=== PATIENT | male | born 1955 | race Caucasian/White ===

== ENCOUNTER 2019-10-29 09:56 | Emergency (ER) | payer MEDICARE ==
[~2019-10-29] VITALS: Ht 190.5 cm; Wt 108.0 kg
[~2019-10-29 09:56] MED LIST: ACET325; ALBU90OI INH; AMIO200; AMLO5 PO; AMOX500 PO; AMOX875 PO; ASPI325; ASPI81CH PO; ASPI81EC PO; ATEN25 PO; ATOR10 PO; Amiodarone HCl200 MG PO; Amlodipine Besyl5 MG PO; BUME1 PO; CARV25; CARV25 PO; CIPR250 PO; CIPR500 PO; CYCL10 PO; Cartia Xt180 MG PO; Carvedilol25 MG PO; Cleocin HCl300 MG PO; DIAZ5 PO; DIGO.125 PO; DIGO.25 PO; DIGOX125 MCG PO; DILT180 PO; ELIQUIS PO; ELIQUIS5 MG PO; ENOX120I SC; ENOX120I SQ; FENO48 PO; FOLI1 PO; FURO20 PO; GLIP10 PO; HYDACE10B PO; HYDACE5 PO; HYDR-86 PO; IBUP200; IBUP800 PO; INSDET100; LEVFLO500 PO; LEVO750 PO; LIDO700A20 TOP; LISHYD2012 PO; LISI20 PO; LISI5 PO; LORA2 PO; Lisinopril2.5 MG; MAGCHL64ER PO; METF500 PO; METH10 PO; METO50 PO; Metformin HCl1000 MG PO; NAPR220 PO; NAPR500 PO; NAPR550 PO; Norco 10-325 T1 EACH PO; Norco 5-325 Ta1 EACH PO; Norco 7.5-3251 EACH PO; OMEP40CA12 PO; OMEPRAZOLE DR 40 MG; OXYACE5T PO; OXYCODONE PO; POTA10T PO; POTCHL10ER PO; PRAV20 PO; PRED20 PO; PROM25 PO; Percocet 5-3251 EACH PO; Potassium Chlo10 ME1 PO; Prednisone20 MG PO; RXHYDACE PO; RXLORA1 PO; Robaxin500 MG PO; SOTO80 PO; TEMA15 PO; THIA100 PO; TIOT18 INH; TRAM50 PO; VARE1 PO; Valium5 MG PO; WARF5 PO; WARF7.5 PO; Zithromax250 MG PO
[2019-10-29] MEDS ORDERED: Norco 10-325 T1 EACH PO (10:44)
[2019-10-29] MEDS ORDERED: Prednisone20 MG PO (10:44)
[2019-10-29] MEDS ORDERED: CYCL10 PO (10:44)
== END 2019-10-29 11:03 | disposition home or self-care (01) ==
LOC: ER 09:56
DX: G89.29 Other chronic pain (principal); M54.5 Low back pain; Z88.1 Allergy status to other antibiotic agents; Z88.8 Allergy status to other drugs, medicaments and biological substances; Z79.899 Other long term (current) drug therapy; J44.9 Chronic obstructive pulmonary disease, unspecified; I48.91 Unspecified atrial fibrillation; E11.9 Type 2 diabetes mellitus without complications; I10 Essential (primary) hypertension; G47.33 Obstructive sleep apnea (adult) (pediatric); Z87.891 Personal history of nicotine dependence
CPT/HCPCS: 96372; 99283-25; J2550; J3010

== ENCOUNTER 2019-12-24 10:59 | Inpatient (IN) | payer MEDICARE ==
[~2019-12-24] VITALS: Ht 190.5 cm; Wt 108.9 kg
[~2019-12-24 10:59] MED LIST changes: -ATOR10 PO; -ELIQUIS5 MG PO; -FENO48 PO; -INSDET100
[2019-12-24 11:52] LABS: BASOPHILS ABSOLUTE AUTO 0.03 K/mm3 (0.00-0.23); BASOPHILS PERCENT AUTO 0 % (0-2); EOSINOPHILS PERCENT AUTO 1 % (0-6); Hematocrit 43.4 % (37.0-53.0); Hemoglobin 13.9 g/dL (13.5-17.5); IMMATURE GRAN ABSOLUTE AUTO 0.04 K/mm3 (0.00-0.10); IMMATURE GRAN PERCENT AUTO 1 % (0-1); LYMPHOCYTES ABSOLUTE AUTO 1.03 K/mm3 (0.84-5.20); LYMPHOCYTES PERCENT AUTO 12 % (21-46); MONOCYTES ABSOLUTE AUTO 0.58 K/mm3 (0.16-1.47); MONOCYTES PERCENT AUTO 7 % (4-13); Mean Corpuscular HGB 28.5 pg (26.0-34.0); Mean Corpuscular Volume 89 fL (80-100); Mean Platelet Volume 8.7 fL (9.1-12.4); NEUTROPHILS ABSOLUTE AUTO 7.08 K/mm3 (1.96-9.15); NEUTROPHILS PERCENT AUTO 80 % (41-73); Platelet Count 299 K/mm3 (150-400); RDW Coefficient Variation 13.4 % (11.7-14.2); RDW Standard Deviation 43.8 fL (35.1-46.3); Red Blood Cell Count 4.88 M/mm3 (4.30-5.90); White Blood Cell Count 8.86 K/mm3 (4.00-11.30)
[2019-12-24 12:05] LABS: Albumin, Blood 3.5 g/dL (3.4-5.0); Albumin/Globulin Ratio 0.7 (0.8-1.8); Bilirubin, Total 0.6 mg/dL (0.1-1.0); Bun/Creatinine Ratio 22.9 (12.0-20.0); Calcium, Blood 9.5 mg/dL (8.5-10.1); Creatinine, Blood 1.31 mg/dL (0.60-1.20); Potassium, Blood 4.3 mmol/L (3.5-5.5); Total Protein, Blood 8.5 g/dL (6.4-8.2)
[2019-12-24] MEDS ORDERED: Bumetanide1 MG PO ×2 (12:32→16:36)
[2019-12-24] MEDS ORDERED: OXYC5 PO (12:38)
[2019-12-24] MEDS ORDERED: ATOR10 PO (12:39)
[2019-12-24] MEDS ORDERED: FENO48 PO (12:40)
[2019-12-24] MEDS ORDERED: LOSARTAN POTASS25 M2 PO (12:40)
[2019-12-24] MEDS ORDERED: NOVOLIN N100 UNIT/1 SC (12:41)
[2019-12-24] MEDS ORDERED: METO100 PO (12:42)
[2019-12-24] MEDS ORDERED: INSDET100 SC (12:42)
[2019-12-24] MEDS ORDERED: CLON.1 PO (12:43)
[2019-12-24] MEDS ORDERED: ELIQUIS5 MG PO (12:55)
--- NOTE | 2019-12-24 16:15 | NUR ---
PT ARRIVED TO ROOM 231 FROM ER DEPT PT IS BEING ADMITTED FOR OSTEO OF L TOE PT TO HAVE AMP PT TAKING BLOOD THINNER OK TO EAT BS 88 FOOD GIVEN
[2019-12-24] MEDS ORDERED: Fish Oil Conc1000 MG PO (16:42)
[2019-12-24] MEDS ORDERED: CENTRUM SILVER1 EAC2 PO (16:42)
[2019-12-24] MEDS ORDERED: D3 DOTS50 MCG PO (16:43)
[2019-12-24] MEDS ORDERED: Super B-50 Com1 EACH PO (16:43)
--- NOTE | 2019-12-24 18:10 | NUR ---
pt had dinner pt req the light off
--- NOTE | 2019-12-24 18:19 | NUR ---
MESSAGE LEFT WITH DR GROSS FOR CONSULT
[2019-12-25 05:16] LABS: BASOPHILS ABSOLUTE AUTO 0.03 K/mm3 (0.00-0.23); BASOPHILS PERCENT AUTO 1 % (0-2); EOSINOPHILS ABSOLUTE AUTO 0.17 K/mm3 (0.00-0.68); EOSINOPHILS PERCENT AUTO 3 % (0-6); Hematocrit 39.4 % (37.0-53.0); Hemoglobin 12.7 g/dL (13.5-17.5); IMMATURE GRAN ABSOLUTE AUTO 0.04 K/mm3 (0.00-0.10); IMMATURE GRAN PERCENT AUTO 1 % (0-1); LYMPHOCYTES ABSOLUTE AUTO 1.36 K/mm3 (0.84-5.20); LYMPHOCYTES PERCENT AUTO 23 % (21-46); MONOCYTES ABSOLUTE AUTO 0.63 K/mm3 (0.16-1.47); MONOCYTES PERCENT AUTO 11 % (4-13); Mean Corpuscular HGB 28.3 pg (26.0-34.0); Mean Corpuscular HGB Conc 32.2 g/dL (31.5-36.5); Mean Corpuscular Volume 88 fL (80-100); Mean Platelet Volume 8.9 fL (9.1-12.4); NEUTROPHILS ABSOLUTE AUTO 3.67 K/mm3 (1.96-9.15); NEUTROPHILS PERCENT AUTO 62 % (41-73); Platelet Count 245 K/mm3 (150-400); RDW Coefficient Variation 13.7 % (11.7-14.2); RDW Standard Deviation 43.9 fL (35.1-46.3); Red Blood Cell Count 4.48 M/mm3 (4.30-5.90)
[2019-12-25 05:38] LABS: Alanine Aminotransfer (ALT/SGP 22 U/L (12-78); Albumin, Blood 2.9 g/dL (3.4-5.0); Albumin/Globulin Ratio 0.7 (0.8-1.8); Alk Phos 82 U/L (50-136); Anion Gap 7 mmol/L (6-16); Aspartate Aminotrans (AST/SGOT 22 U/L (12-37); Bilirubin, Total 0.5 mg/dL (0.1-1.0); Blood Urea Nitrogen 30 mg/dL (8-24); Bun/Creatinine Ratio 23.8 (12.0-20.0); CO2, Blood 25 mmol/L (21-32); Calcium, Blood 8.8 mg/dL (8.5-10.1); Chloride, Blood 106 mmol/L (98-108); Creatinine, Blood 1.26 mg/dL (0.60-1.20); Globulin, Blood 4.4 g/dL (2.2-4.0); Glomerular Filtration Rate >60 (60-); Glucose, Blood 106 mg/dL (70-99); Potassium, Blood 4.1 mmol/L (3.5-5.5); Sodium, Blood 138 mmol/L (136-145); Total Protein, Blood 7.3 g/dL (6.4-8.2)
--- NOTE | 2019-12-25 07:59 | NUR ---
SUMMARY PT C/O PAIN MEDS INEFFECTIVE LAST NIGHT. VERB HE HAS RECEIVED OXYCONTIN FOR PAIN IN PAST WHICH WAS EFFECTIVE AND REQUESTING THIS. I SPOKE WITH DR BLAKE WHO GAVE PT ADDITIONAL DOSE OF NORCO AND VERB WOULD NOT CHANGE ORDERS OTHERWISE TONIGHT.ADDITIONAL DOSE WAS GIVEN, AND PT APPEARED SLEEPING AND SNORING AFTER, BUT STILL VERB LITTLE SLEEP.PT VERB NERVOUS ABOUT TODAYS OUTCOMESUPPORT GIVEN.
--- NOTE | 2019-12-25 12:14 | NUR ---
PT TO SURGERY
--- NOTE | 2019-12-25 13:35 | NUR ---
12/25/19 1335 Daljit Du ON SCHEDULED ANTIBITICS
--- NOTE | 2019-12-25 14:34 | NUR ---
PT BACK TO ROOM FROM PACU VSS. DENIES PAIN TO LLE AT THIS TIME. DRESSING TO LLE CDI. ADVISED PT TO NOT GET UP W/O ASSISTANCE. VERBALIZED UNDERSTANDING. PROVIDED WATER, JELLO AND CRACKERS. PT VERBALIZED THIRSTY AND HUNGRY. AT BEDSIDE.
--- NOTE | 2019-12-25 18:15 | NUR ---
SUMMARY S/P L GREAT TOE AMPUTATION THIS SHIFT. VSS. MEDICATED AT APPROXIMATELY 1805 FOR 8/10 LLE PAIN PER ORDERS. THIS WAS THE FIRST TIME PT REQUIRED PAIN MEDS SINCE RETURNING TO FLOOR FROM PACU. DRESSING TO LLE CDI. CALL LIGHT IN REACH.
[2019-12-26 05:19] LABS: BASOPHILS ABSOLUTE AUTO 0.03 K/mm3 (0.00-0.23); BASOPHILS PERCENT AUTO 0 % (0-2); EOSINOPHILS ABSOLUTE AUTO 0.15 K/mm3 (0.00-0.68); EOSINOPHILS PERCENT AUTO 2 % (0-6); Hematocrit 39.9 % (37.0-53.0); Hemoglobin 12.4 g/dL (13.5-17.5); IMMATURE GRAN ABSOLUTE AUTO 0.03 K/mm3 (0.00-0.10); IMMATURE GRAN PERCENT AUTO 0 % (0-1); LYMPHOCYTES ABSOLUTE AUTO 1.04 K/mm3 (0.84-5.20); LYMPHOCYTES PERCENT AUTO 13 % (21-46); MONOCYTES ABSOLUTE AUTO 0.68 K/mm3 (0.16-1.47); MONOCYTES PERCENT AUTO 8 % (4-13); Mean Corpuscular HGB 27.6 pg (26.0-34.0); Mean Corpuscular HGB Conc 31.1 g/dL (31.5-36.5); Mean Corpuscular Volume 89 fL (80-100); Mean Platelet Volume 8.5 fL (9.1-12.4); NEUTROPHILS PERCENT AUTO 77 % (41-73); Platelet Count 233 K/mm3 (150-400); RDW Coefficient Variation 13.7 % (11.7-14.2); RDW Standard Deviation 44.3 fL (35.1-46.3); White Blood Cell Count 8.33 K/mm3 (4.00-11.30)
[2019-12-26 05:44] LABS: Albumin, Blood 2.9 g/dL (3.4-5.0); Albumin/Globulin Ratio 0.7 (0.8-1.8); Bilirubin, Total 0.5 mg/dL (0.1-1.0); Bun/Creatinine Ratio 19.1 (12.0-20.0); C-REACTIVE PROTEIN, EXT RANGE 0.998 mg/dL (0.000-0.300); Calcium, Blood 9.1 mg/dL (8.5-10.1); Creatinine, Blood 1.36 mg/dL (0.60-1.20); Globulin, Blood 4.1 g/dL (2.2-4.0); Potassium, Blood 4.2 mmol/L (3.5-5.5)
--- NOTE | 2019-12-26 07:59 | NUR ---
SUMMARY PT INTERMITTENTLY APPEARED TO SLEEP LAST NIGHT, BUT REPORTS NOT SLEEPING. PT INITIALLY VERB HE HAS DIFF WITH TROUBLE SLEEPING.I ASKED PT IF HE WOULD LIKE ME TO CALL FOR REQUEST OF SLEEP MED AND PT DECLINED. STATED THEY DO NOT WORK FOR HIM. INTIIALLY PT REPORTED ONLY PAIN TO L FOOT, BUT NIGHT PROGRESSED, PT C/O "BURNING" PAIN BILAT FEET.VERB SAME TYPE OF PAIN HE HAS AT HOME. WHEN ASKED WHAT PT DOES FOR THIS PAIN AT HOME,PT STATED USES CBD OIL AND "I DEAL WITH IT"PT ASKING TO BRING HIS CBD OIL IN THIS AM SO WE CAN ASK DR IF ALLOWABLE TO USE.PT STATES FORGOT TO BRING IT IN FRIDAY AND CAN NOT BRING IN UNTIL TODAY. I CALLED DR BLAKE THIS AM WITH REPORT OF PT C/O AND PTS BRINGING CBD. ADVISED HE DID NOT WISH TO CHANGE ORDERS, BUT WANTS PRIMARY TEAM TODAY TO BE IN CONTROL OF PAIN MED ORDERS.I ADVISED ONCOMING NURSE AND PT. I ALSO ADVISED PT IF HE COULD THINK OF ANYTHING ELSE HE HAS DONE OR USED IN PAST FOR PAIN CONTROL TO LET NURSES KNOW AND WE CAN SPEAK WITH DAYTIME DOCTORS. PT AGREES. ALSO OFFERED ICE FOR COMFORT. PT DECLINES. ENCOURAGED NOT TO BEAR WEIGHT LLE WHICH PT CONTINUES TO USE HEEL FOR WALKING. DSNGS REMAIN DRY. WIGGLES TOES WITHOUT DIFF. REFILL WNL.
[2019-12-26] MEDS ORDERED: ACET325 PO (11:28)
[2019-12-26] MEDS ORDERED: DOCU100 PO (11:30)
[2019-12-26] MEDS ORDERED: BISA10S PR (11:30)
[2019-12-26] MEDS ORDERED: Flonase 0.05% N16 GM (11:31)
[2019-12-26] MEDS ORDERED: Norco 5-325 Ta1 EACH PO (11:32)
[2019-12-26] MEDS ORDERED: ONDA4ODT MM (11:33)
[2019-12-26] MEDS ORDERED: LEVO750 PO (11:33)
[2019-12-26] MEDS ORDERED: SENN187 PO (11:34)
[2019-12-26] MEDS ORDERED: DEEP SEA44 ML (11:35)
[2019-12-26] MEDS ORDERED: Florastor250 MG PO (11:35)
--- NOTE | 2019-12-26 13:24 | NUR ---
DISCHARGED FAXED PRESCRIPTIONS TO [facility] PER PT REQUEST. REVIEWED DC PAPERWORK W/PT; VERBALIZED UNDERSTANDING. DC'D IVS, CATHETERS INTACT. PT REFUSED WC, AMBULATED OUT W/POSSESSIONS AND DC PAPERWORK, ACCOMPANIED BY SPOUSE.
== END 2019-12-26 12:30 | disposition home or self-care (01) | DRG 617 ==
LOC: ER 10:59 → SURS 13:28
PROVIDERS: Emergency Medicine; Family Medicine; Podiatrist; ADMIT Internal Medicine
PROC: 0Y6Q0Z0 Detachment at Left 1st Toe, Complete, Open Approach (ICD-10-PCS; principal; 2019-12-25 11:15)
DX: E11.69 Type 2 diabetes mellitus with other specified complication (principal); M86.172 Other acute osteomyelitis, left ankle and foot; I48.20 Chronic atrial fibrillation, unspecified; E11.21 Type 2 diabetes mellitus with diabetic nephropathy; I12.9 Hypertensive chronic kidney disease with stage 1 through stage 4 chronic kidney disease, or unspecified chronic kidney disease; E11.22 Type 2 diabetes mellitus with diabetic chronic kidney disease; N18.3 Chronic kidney disease, stage 3 (moderate); Z79.4 Long term (current) use of insulin; E11.42 Type 2 diabetes mellitus with diabetic polyneuropathy; J44.9 Chronic obstructive pulmonary disease, unspecified; Z79.01 Long term (current) use of anticoagulants; Z86.718 Personal history of other venous thrombosis and embolism; G47.33 Obstructive sleep apnea (adult) (pediatric); K21.9 Gastro-esophageal reflux disease without esophagitis; E78.5 Hyperlipidemia, unspecified; G89.29 Other chronic pain; L03.032 Cellulitis of left toe; Z87.891 Personal history of nicotine dependence
CPT/HCPCS: 36415; 73660; 80053; 82947; 85025; 85651; 86140; 93005; 93010; 96365; 96367; 96372-59; 96375; 99285-25; A9270-GY; J1170; J1644; J1956; J2250; J2370; J2405; J2543; J2704; J2765; J3010; J7120

== ENCOUNTER 2020-03-24 15:59 | Emergency (ER) | payer MEDICARE ==
[~2020-03-24] VITALS: Ht 190.5 cm; Wt 112.5 kg
[~2020-03-24 15:59] MED LIST changes: +ACET325 PO; +ATOR10 PO; +Augmentin 875-1 EACH PO; +BISA10S PR; +Bumetanide1 MG PO; +CENTRUM SILVER1 EAC2 PO; +CLON.1 PO; +D3 DOTS50 MCG PO; +DEEP SEA44 ML; +DOCU100 PO; +ELIQUIS5 MG PO; +FENO48 PO; +Fish Oil Conc1000 MG PO; +Flonase 0.05% N16 GM; +Florastor250 MG PO; +HYDR1TAB94 PO; +INSDET100 SC; +LOSARTAN POTASS25 M2 PO; +METO100 PO; +NOVOLIN N100 UNIT/1 SC; +ONDA4ODT MM; +OXYC5 PO; +SENN187 PO; +Super B-50 Com1 EACH PO
[2020-03-24] MEDS ORDERED: HYDR1TAB94 PO (16:47)
[2020-03-24] MEDS ORDERED: Robaxin-750750 MG PO (16:47)
== END 2020-03-24 16:57 | disposition home or self-care (01) ==
LOC: ER 15:59
DX: G89.29 Other chronic pain (principal); M54.5 Low back pain; I10 Essential (primary) hypertension; E11.42 Type 2 diabetes mellitus with diabetic polyneuropathy; I48.91 Unspecified atrial fibrillation; K21.9 Gastro-esophageal reflux disease without esophagitis; E78.5 Hyperlipidemia, unspecified; Z86.718 Personal history of other venous thrombosis and embolism; G47.33 Obstructive sleep apnea (adult) (pediatric); Z87.891 Personal history of nicotine dependence; Z88.1 Allergy status to other antibiotic agents; Z88.8 Allergy status to other drugs, medicaments and biological substances; Z88.6 Allergy status to analgesic agent; Z79.4 Long term (current) use of insulin; Z79.899 Other long term (current) drug therapy
CPT/HCPCS: 96372; 99283-25; A9270-GY; J1885

== ENCOUNTER 2020-08-09 11:13 | Inpatient (IN) | payer MEDICARE ==
[~2020-08-09] VITALS: Ht 188 cm; Wt 118.9 kg
[~2020-08-09 11:13] MED LIST changes: +Robaxin-750750 MG PO
[2020-08-09 12:34] LABS: BASOPHILS ABSOLUTE AUTO 0.05 K/mm3 (0.00-0.23); BASOPHILS PERCENT AUTO 1 % (0-2); EOSINOPHILS ABSOLUTE AUTO 0.18 K/mm3 (0.00-0.68); EOSINOPHILS PERCENT AUTO 2 % (0-6); Hematocrit 37.3 % (37.0-53.0); Hemoglobin 11.7 g/dL (13.5-17.5); IMMATURE GRAN ABSOLUTE AUTO 0.06 K/mm3 (0.00-0.10); IMMATURE GRAN PERCENT AUTO 1 % (0-1); LYMPHOCYTES ABSOLUTE AUTO 0.88 K/mm3 (0.84-5.20); LYMPHOCYTES PERCENT AUTO 8 % (21-46); MONOCYTES PERCENT AUTO 9 % (4-13); Mean Corpuscular HGB 28.3 pg (26.0-34.0); Mean Corpuscular HGB Conc 31.4 g/dL (31.5-36.5); Mean Corpuscular Volume 90 fL (80-100); Mean Platelet Volume 9.5 fL (9.1-12.4); NEUTROPHILS ABSOLUTE AUTO 8.42 K/mm3 (1.96-9.15); NEUTROPHILS PERCENT AUTO 80 % (41-73); Platelet Count 218 K/mm3 (150-400); RDW Coefficient Variation 13.5 % (11.7-14.2); RDW Standard Deviation 44.7 fL (35.1-46.3); Red Blood Cell Count 4.14 M/mm3 (4.30-5.90); White Blood Cell Count 10.59 K/mm3 (4.00-11.30)
[2020-08-09 12:47] LABS: Albumin, Blood 2.8 g/dL (3.4-5.0); Albumin/Globulin Ratio 0.6 (0.8-1.8); Bilirubin, Total 0.4 mg/dL (0.1-1.0); Bun/Creatinine Ratio 18.5 (12.0-20.0); Calcium, Blood 9.1 mg/dL (8.5-10.1); Creatinine, Blood 1.3 mg/dL (0.60-1.20); Globulin, Blood 4.4 g/dL (2.2-4.0); Potassium, Blood 4.8 mmol/L (3.5-5.5); Total Protein, Blood 7.2 g/dL (6.4-8.2)
[2020-08-09] MEDS ORDERED: WARF7.5 PO (13:49)
[2020-08-09] MEDS ORDERED: AMOCLA875 PO (13:49)
[2020-08-09 14:37] LABS: International Normalized Ratio 2.49; Prothrombin Time Results 25.3 Sec (9.7-11.5)
--- NOTE | 2020-08-09 19:37 | NUR ---
ADMISSION: REPORT RECEIVED FROM ED RN. PT TO ROOM AT ABOUT 1630. UPON ASSESSMENT PT IS IN NO VISABLE DISTRESS, A/0, VSS. REPORTS L FOOT PAINFUL. CSM IS INTACT. L FOOT SWOLLEN WITH WOUND AT BOTTOM OF FOOT. PICTURES TAKEN AND WOUND RE-DRESSED. PT MEDICATED FOR PAIN. WILL CTM
[2020-08-10 04:45] LABS: Hematocrit 36.6 % (37.0-53.0); Hemoglobin 11.5 g/dL (13.5-17.5); Mean Corpuscular HGB Conc 31.4 g/dL (31.5-36.5); Mean Corpuscular Volume 89 fL (80-100); Mean Platelet Volume 9.5 fL (9.1-12.4); Platelet Count 197 K/mm3 (150-400); RDW Coefficient Variation 13.8 % (11.7-14.2); RDW Standard Deviation 45.1 fL (35.1-46.3); White Blood Cell Count 9.45 K/mm3 (4.00-11.30)
[2020-08-10 05:00] LABS: International Normalized Ratio 1.66; Prothrombin Time Results 17.3 Sec (9.7-11.5)
[2020-08-10 05:08] LABS: Bun/Creatinine Ratio 16.5 (12.0-20.0); Creatinine, Blood 1.39 mg/dL (0.60-1.20); Potassium, Blood 4.3 mmol/L (3.5-5.5)
--- NOTE | 2020-08-10 07:10 | NUR ---
SUMMARY PT NOTED ON SCHEDULE FOR THIS AM. NOTIFIED PT.SEE LABS. CREAT AND GFR ABN ON ADMIT.CONT SAME THIS AM.
--- NOTE | 2020-08-10 13:26 | NUR ---
Patient up to Ambulate independently. Gait steady. History, Chart, Medications and Allergies reviewed before start of procedure.Lungs clear T/O to Auscultation. Patient confirms NPO status and agrees with scheduled surgery. ALL BELONINGS LEFT IN ROOM.
--- NOTE | 2020-08-10 16:31 | NUR ---
POST OP: REPORT RECEIVED FROM EVER INSIDE SALES LEAD. PT TO UNIT AT ABOUT 1545. UPON ASSESSMENT, VSS, PT A/O. DENIES PAIN. CMS INTACT TO L FOOT. PEDAL PULSE PALPABLE. DENIES ANY NEW N/V. PT ABLE TO TOLERATE PO INTAKE. WILL CTM
--- NOTE | 2020-08-10 18:37 | NUR ---
SUMMARY: PT IS POD0 L TOE AMPUTATIONS. DOING WELL POST OP. SURGICAL SITE IS WRAPED IN GAUZE, CDI. ENCOURAGING ELEVATING. PT TOLERATING PO INTAKE, DENIES N/V. VSS, A/0. PT ABLE TO AMBULATE, WBAT. ABLE TO VOID POST OP. REPORTS PAIN IS WELL MANAGED PER EMAR. NO ACUTE SAFETY CONCERNS, PT USING CALL LIGHT. WILL PASS REPORT TO ISAMAR FERRO.
--- NOTE | 2020-08-11 07:41 | NUR ---
SUMMARY PT AMBULATORY.VOIDIN.TOLERATING PO. VERB SUBLIMAZE WITH ADEQUATE PAIN CONTROL. HAS SURGICAL WALKING SHOE FOR L FOOT.
--- NOTE | 2020-08-11 17:53 | NUR ---
SUMMARY NO ACUTE CHANGES T/O SHIFT. PT INDEPENDENT IN ROOM. REQUIRING PO PAIN MEDS AND IV FOR BREAKTHROUGH. PLAN TO DC TOMORROW. CALL LIGHT IN REACH.
[2020-08-12] MEDS ORDERED: ROXICODONE5 MG PO (08:34)
--- NOTE | 2020-08-12 11:36 | NUR ---
DISCHARGE: PT REPORTS UNDERSTANDING OF DISCHARGE INSTRUCTIONS, TO BE SENT WITH SCRIPT, PAPERWORK AND BELONGINGS. PT EATING, DRINKING, VOIDING, REPORTS BM YESTERDAY. PT DENIES QUESTIONS REGARDING HOME MEDICATIONS. REPORTS HAVING MEDICATIONS AT HOME INCLUDING ABX. REPORTS WILL CONTACT DR OFFICE ON FRIDAY REGARDING F/U APPT'S. IV OUT EARLIER WNL. PT AWAITING FAMILY TO PICK PT UP.
--- NOTE | 2020-08-12 12:12 | NUR ---
PT REPORTS FAMILY HERE, REPORTS WANTING TO WALK OUT OF HOSPITAL. PT REPORTS FAMILY HAVING BELONGINGS INCLUDING SCRIPTS.
== END 2020-08-12 12:12 | disposition home or self-care (01) | DRG 617 ==
LOC: ER 11:13 → MEDS 16:03 → SURS 16:03
PROVIDERS: Emergency Medicine; Physician Assistant; Podiatrist; ADMIT Internal Medicine
PROC: 0Y6Y0Z0 Detachment at Left 5th Toe, Complete, Open Approach (ICD-10-PCS; 2020-08-10)
PROC: 0Y6W0Z0 Detachment at Left 4th Toe, Complete, Open Approach (ICD-10-PCS; 2020-08-10)
PROC: 0Y6U0Z0 Detachment at Left 3rd Toe, Complete, Open Approach (ICD-10-PCS; 2020-08-10)
PROC: 0QTR0ZZ Resection of Left Toe Phalanx, Open Approach (ICD-10-PCS; 2020-08-10)
PROC: 0QTR0ZZ Resection of Left Toe Phalanx, Open Approach (ICD-10-PCS; 2020-08-10)
PROC: 0Y6S0Z0 Detachment at Left 2nd Toe, Complete, Open Approach (ICD-10-PCS; principal; 2020-08-10 13:30)
DX: E11.69 Type 2 diabetes mellitus with other specified complication (principal); M86.172 Other acute osteomyelitis, left ankle and foot; I48.20 Chronic atrial fibrillation, unspecified; Z79.01 Long term (current) use of anticoagulants; G47.33 Obstructive sleep apnea (adult) (pediatric); E11.42 Type 2 diabetes mellitus with diabetic polyneuropathy; E78.5 Hyperlipidemia, unspecified; E11.21 Type 2 diabetes mellitus with diabetic nephropathy; I73.9 Peripheral vascular disease, unspecified; Z87.891 Personal history of nicotine dependence; Z79.4 Long term (current) use of insulin; K21.9 Gastro-esophageal reflux disease without esophagitis; Z91.14 Patient's other noncompliance with medication regimen; Z91.19 Patient's noncompliance with other medical treatment and regimen; I12.9 Hypertensive chronic kidney disease with stage 1 through stage 4 chronic kidney disease, or unspecified chronic kidney disease; E11.22 Type 2 diabetes mellitus with diabetic chronic kidney disease; N18.30 Chronic kidney disease, stage 3 unspecified; J44.9 Chronic obstructive pulmonary disease, unspecified; Z86.718 Personal history of other venous thrombosis and embolism
CPT/HCPCS: 36415; 80048; 80053; 82947; 85025; 85027; 85610; 87071; 87075; 87077; 87186; 87205; 93005; 93010; 93922; 99284; A9270-GY; J1100; J1815; J2250; J2370; J2405; J2704; J3010; J7120; U0003

== ENCOUNTER 2020-09-11 11:54 | Emergency (ER) | payer MEDICARE ==
[~2020-09-11] VITALS: Ht 188 cm; Wt 113.4 kg
[~2020-09-11 11:54] MED LIST changes: +AMOCLA875 PO; +ROXICODONE5 MG PO
[2020-09-11 12:38] LABS: BASOPHILS ABSOLUTE AUTO 0.03 K/mm3 (0.00-0.23); BASOPHILS PERCENT AUTO 0 % (0-2); EOSINOPHILS ABSOLUTE AUTO 0.13 K/mm3 (0.00-0.68); EOSINOPHILS PERCENT AUTO 2 % (0-6); Hematocrit 45.9 % (37.0-53.0); Hemoglobin 14.1 g/dL (13.5-17.5); IMMATURE GRAN ABSOLUTE AUTO 0.04 K/mm3 (0.00-0.10); IMMATURE GRAN PERCENT AUTO 1 % (0-1); LYMPHOCYTES ABSOLUTE AUTO 0.87 K/mm3 (0.84-5.20); LYMPHOCYTES PERCENT AUTO 11 % (21-46); MONOCYTES ABSOLUTE AUTO 0.49 K/mm3 (0.16-1.47); MONOCYTES PERCENT AUTO 6 % (4-13); Mean Corpuscular HGB 27.6 pg (26.0-34.0); Mean Corpuscular HGB Conc 30.7 g/dL (31.5-36.5); Mean Corpuscular Volume 90 fL (80-100); Mean Platelet Volume 9.7 fL (9.1-12.4); NEUTROPHILS ABSOLUTE AUTO 6.67 K/mm3 (1.96-9.15); NEUTROPHILS PERCENT AUTO 81 % (41-73); Platelet Count 165 K/mm3 (150-400); RDW Coefficient Variation 14.7 % (11.7-14.2); RDW Standard Deviation 48.4 fL (35.1-46.3); Red Blood Cell Count 5.11 M/mm3 (4.30-5.90); White Blood Cell Count 8.23 K/mm3 (4.00-11.30)
[2020-09-11 12:57] LABS: Alanine Aminotransfer (ALT/SGP 32 U/L (12-78); Albumin, Blood 3.5 g/dL (3.4-5.0); Albumin/Globulin Ratio 0.8 (0.8-1.8); Alk Phos 97 U/L (50-136); Anion Gap 4 mmol/L (6-16); Aspartate Aminotrans (AST/SGOT 23 U/L (12-37); Bilirubin, Total 0.6 mg/dL (0.1-1.0); Blood Urea Nitrogen 29 mg/dL (8-24); Bun/Creatinine Ratio 24.4 (12.0-20.0); CO2, Blood 29 mmol/L (21-32); Chloride, Blood 108 mmol/L (98-108); Creatinine, Blood 1.19 mg/dL (0.60-1.20); Globulin, Blood 4.2 g/dL (2.2-4.0); Glomerular Filtration Rate >60 (60-); Glucose, Blood 90 mg/dL (70-99); Potassium, Blood 4.6 mmol/L (3.5-5.5); Sodium, Blood 141 mmol/L (136-145); Total Protein, Blood 7.7 g/dL (6.4-8.2); Troponin I <0.015 ng/mL (0.000-0.040)
[2020-09-11] MEDS ORDERED: CLON.1 (13:27)
== END 2020-09-11 15:41 | disposition home or self-care (01) ==
LOC: ER 11:54
PROVIDERS: Emergency Medicine
DX: R06.02 Shortness of breath (principal); R07.89 Other chest pain; E11.42 Type 2 diabetes mellitus with diabetic polyneuropathy; I48.91 Unspecified atrial fibrillation; K21.9 Gastro-esophageal reflux disease without esophagitis; E78.5 Hyperlipidemia, unspecified; Z88.8 Allergy status to other drugs, medicaments and biological substances; Z88.6 Allergy status to analgesic agent; Z88.1 Allergy status to other antibiotic agents; Z79.01 Long term (current) use of anticoagulants; Z79.899 Other long term (current) drug therapy; Z86.718 Personal history of other venous thrombosis and embolism; Z87.891 Personal history of nicotine dependence
CPT/HCPCS: 36415; 71045; 71260; 80053; 83880; 84484; 85025; 93005; 93010; 99285-25; Q9967

== ENCOUNTER 2021-01-09 14:41 | Emergency (ER) | payer MEDICARE, SELFPAY ==
[~2021-01-09] VITALS: Ht 190.5 cm; Wt 113.4 kg
[~2021-01-09 14:41] MED LIST changes: -D3 DOTS50 MCG PO; -Fish Oil Conc1000 MG PO; +OMEGA-3 FISH O1 EAC6 PO; -Super B-50 Com1 EACH PO; +VITAMIN D31000 UNI1 PO; +Vitamin B Comple1 EA PO
[2021-01-09] MEDS ORDERED: Cyclobenzaprine5 MG PO (15:09)
[2021-01-09] MEDS ORDERED: Norco 5-325 Ta1 EACH PO (15:09)
== END 2021-01-09 15:18 | disposition home or self-care (01) ==
LOC: ER 14:41
DX: M54.41 Lumbago with sciatica, right side (principal); I10 Essential (primary) hypertension; I48.91 Unspecified atrial fibrillation; E11.42 Type 2 diabetes mellitus with diabetic polyneuropathy; K21.9 Gastro-esophageal reflux disease without esophagitis; Z79.899 Other long term (current) drug therapy; Z79.01 Long term (current) use of anticoagulants; Z79.4 Long term (current) use of insulin; Z88.6 Allergy status to analgesic agent; Z88.1 Allergy status to other antibiotic agents; Z88.8 Allergy status to other drugs, medicaments and biological substances; Z87.891 Personal history of nicotine dependence
CPT/HCPCS: 99283

== ENCOUNTER 2021-01-29 15:10 | Inpatient (IN) | payer MEDICARE, SELFPAY ==
[~2021-01-29] VITALS: Ht 188 cm; Wt 112.5 kg
[~2021-01-29 15:10] MED LIST changes: +Cyclobenzaprine5 MG PO
[2021-01-29 16:01] LABS: BASOPHILS ABSOLUTE AUTO 0.03 K/mm3 (0.00-0.23); BASOPHILS PERCENT AUTO 0 % (0-2); EOSINOPHILS ABSOLUTE AUTO 0.01 K/mm3 (0.00-0.68); EOSINOPHILS PERCENT AUTO 0 % (0-6); Hematocrit 42.8 % (37.0-53.0); Hemoglobin 14.1 g/dL (13.5-17.5); IMMATURE GRAN ABSOLUTE AUTO 0.04 K/mm3 (0.00-0.10); IMMATURE GRAN PERCENT AUTO 0 % (0-1); LYMPHOCYTES ABSOLUTE AUTO 1.14 K/mm3 (0.84-5.20); LYMPHOCYTES PERCENT AUTO 10 % (21-46); MONOCYTES ABSOLUTE AUTO 1.05 K/mm3 (0.16-1.47); MONOCYTES PERCENT AUTO 9 % (4-13); Mean Corpuscular HGB 28.9 pg (26.0-34.0); Mean Corpuscular HGB Conc 32.9 g/dL (31.5-36.5); Mean Corpuscular Volume 88 fL (80-100); Mean Platelet Volume 9.2 fL (9.1-12.4); NEUTROPHILS ABSOLUTE AUTO 9.24 K/mm3 (1.96-9.15); NEUTROPHILS PERCENT AUTO 80 % (41-73); Platelet Count 200 K/mm3 (150-400); RDW Standard Deviation 45.1 fL (35.1-46.3); Red Blood Cell Count 4.88 M/mm3 (4.30-5.90); White Blood Cell Count 11.51 K/mm3 (4.00-11.30)
[2021-01-29 16:24] LABS: Albumin, Blood 3.4 g/dL (3.4-5.0); Albumin/Globulin Ratio 0.7 (0.8-1.8); Bun/Creatinine Ratio 20.7 (12.0-20.0); Calcium, Blood 9.6 mg/dL (8.5-10.1); Creatinine, Blood 1.84 mg/dL (0.60-1.20); Globulin, Blood 5.1 g/dL (2.2-4.0); Potassium, Blood 4.8 mmol/L (3.5-5.5); Total Protein, Blood 8.5 g/dL (6.4-8.2)
[2021-01-29] MEDS ORDERED: FENOFIBRATE48 MG PO (20:20)
[2021-01-29] MEDS ORDERED: OXYCODONE-ACET1 EAC3 (20:20)
[2021-01-29] MEDS ORDERED: AMOX-CLAV 875-1 EAC5 (20:20)
[2021-01-29] MEDS ORDERED: BUME1 PO (20:21)
[2021-01-29] MEDS ORDERED: WARF7.5 PO (21:34)
[2021-01-29] MEDS ORDERED: AMOCLA875 PO (21:54)
[2021-01-29] MEDS ORDERED: BASAGLAR K100 UNIT/1 SC (22:27)
[2021-01-29 22:40] LABS: International Normalized Ratio 3.29; Prothrombin Time Results 32.9 Sec (9.7-11.5)
--- NOTE | 2021-01-30 03:57 | NUR ---
SUPERVISOR FLESHING SUMMARY A/OX4, NPO SINCE MIDNIGHT. 1ST UNIT OF FFP CURRENTLY RUNNING. PLAN IS FOR POSSIBLE SURGERY TODAY. PICTURES OF Darrell MARTINEZ IN CHART. TELE IN PLACE, AFIB IN THE S. DENIES PAIN OR SOB. VSS, NO ACUTE CHANGES AT THIS TIME. BED IN LOWEST POSITION WITH CALL LIGHT IN REACH. WILL CONTINUE TO MONITOR AND REPORT TO ONCOMING RN.
[2021-01-30 08:42] LABS: BASOPHILS ABSOLUTE AUTO 0.02 K/mm3 (0.00-0.23); BASOPHILS PERCENT AUTO 0 % (0-2); EOSINOPHILS PERCENT AUTO 2 % (0-6); Hematocrit 35.6 % (37.0-53.0); Hemoglobin 11.3 g/dL (13.5-17.5); IMMATURE GRAN ABSOLUTE AUTO 0.02 K/mm3 (0.00-0.10); IMMATURE GRAN PERCENT AUTO 0 % (0-1); LYMPHOCYTES ABSOLUTE AUTO 0.86 K/mm3 (0.84-5.20); LYMPHOCYTES PERCENT AUTO 14 % (21-46); MONOCYTES ABSOLUTE AUTO 0.64 K/mm3 (0.16-1.47); MONOCYTES PERCENT AUTO 10 % (4-13); Mean Corpuscular HGB 28.3 pg (26.0-34.0); Mean Corpuscular HGB Conc 31.7 g/dL (31.5-36.5); Mean Corpuscular Volume 89 fL (80-100); Mean Platelet Volume 9.6 fL (9.1-12.4); NEUTROPHILS ABSOLUTE AUTO 4.74 K/mm3 (1.96-9.15); NEUTROPHILS PERCENT AUTO 74 % (41-73); Platelet Count 146 K/mm3 (150-400); RDW Standard Deviation 45.3 fL (35.1-46.3); White Blood Cell Count 6.38 K/mm3 (4.00-11.30)
[2021-01-30 08:54] LABS: International Normalized Ratio 1.97; Prothrombin Time Results 20.3 Sec (9.7-11.5)
[2021-01-30 08:57] LABS: Bun/Creatinine Ratio 21.9 (12.0-20.0); Calcium, Blood 8.7 mg/dL (8.5-10.1); Creatinine, Blood 1.46 mg/dL (0.60-1.20); Potassium, Blood 4.2 mmol/L (3.5-5.5)
[2021-01-30 11:36] LABS: Influenza A, PCR NEGATIVE (NEGATIVE); Influenza B, PCR NEGATIVE (NEGATIVE); Resp Syncytial Virus, PCR NEGATIVE (NEGATIVE); SARS-Cov-2 (COVID-19) PCR, MMC NEGATIVE (NEGATIVE)
--- NOTE | 2021-01-30 17:05 | NUR ---
TRANSPORTED TO OR AT THIS TIME.
--- NOTE | 2021-01-30 17:12 | NUR ---
PT TO SDS FROM RM 324. PT REPORTS NPO EXCEPT FOR MEDS. Lungs clear T/O to Auscultation. History, Chart, Medications and Allergies reviewed before start of procedure. CHEM BG 93 PER FLOOR NURSE.
--- NOTE | 2021-01-30 19:43 | NUR ---
01/30/211942 Laquita Corral PT ON SCHEDULED ANTIBIOTICS
--- NOTE | 2021-01-30 20:53 | NUR ---
RECOVERY PATIENT ARRIVED TO UNIT AT 2014. A/O, VITALS STABLE. DENIES PAIN, KEEPS STATING "I'M DOING FINE". ASSESSMENTS COMPLETED CHARTED. REPORT GIVEN TO MEDICAL FLOOR RN, PATIENT TO TRANSFER VIA GURNEY TO ROOM 324.
[2021-01-31 05:01] LABS: BASOPHILS ABSOLUTE AUTO 0.02 K/mm3 (0.00-0.23); BASOPHILS PERCENT AUTO 0 % (0-2); EOSINOPHILS ABSOLUTE AUTO 0.11 K/mm3 (0.00-0.68); EOSINOPHILS PERCENT AUTO 2 % (0-6); Hematocrit 34.2 % (37.0-53.0); Hemoglobin 10.9 g/dL (13.5-17.5); IMMATURE GRAN ABSOLUTE AUTO 0.03 K/mm3 (0.00-0.10); IMMATURE GRAN PERCENT AUTO 1 % (0-1); LYMPHOCYTES ABSOLUTE AUTO 0.61 K/mm3 (0.84-5.20); LYMPHOCYTES PERCENT AUTO 11 % (21-46); MONOCYTES ABSOLUTE AUTO 0.44 K/mm3 (0.16-1.47); MONOCYTES PERCENT AUTO 8 % (4-13); Mean Corpuscular HGB 28.7 pg (26.0-34.0); Mean Corpuscular HGB Conc 31.9 g/dL (31.5-36.5); Mean Corpuscular Volume 90 fL (80-100); Mean Platelet Volume 8.9 fL (9.1-12.4); NEUTROPHILS ABSOLUTE AUTO 4.28 K/mm3 (1.96-9.15); NEUTROPHILS PERCENT AUTO 78 % (41-73); Platelet Count 139 K/mm3 (150-400); RDW Coefficient Variation 13.8 % (11.7-14.2); RDW Standard Deviation 45.4 fL (35.1-46.3); White Blood Cell Count 5.49 K/mm3 (4.00-11.30)
[2021-01-31 05:28] LABS: Magnesium, Blood 1.8 mg/dL (1.6-2.4)
[2021-01-31 05:35] LABS: Albumin, Blood 2.5 g/dL (3.4-5.0); Albumin/Globulin Ratio 0.6 (0.8-1.8); Bilirubin, Total 0.7 mg/dL (0.1-1.0); Bun/Creatinine Ratio 14.9 (12.0-20.0); Calcium, Blood 8.4 mg/dL (8.5-10.1); Creatinine, Blood 1.54 mg/dL (0.60-1.20); Globulin, Blood 3.9 g/dL (2.2-4.0); Potassium, Blood 4.2 mmol/L (3.5-5.5); Total Protein, Blood 6.4 g/dL (6.4-8.2)
--- NOTE | 2021-01-31 06:08 | NUR ---
SHIFT SUMMARY PT AT SURG WHEN ASSUMING CARE, REPORT REC FROM C D STILL OPERATOR & PT BACK TO ROOM @ 2100, NO ACUTE CHANGES SINCE ASSUMING CARE, MEDICATED 1X FOR PAIN, NO OTHER C/O ANY KIND, SLEPT T/O THE NIGHT, UP W/MINIMAL ASSIST TO BR, IV FLUIDS CONT INFUSING, PT SLEEPING AT THIS TIME, LLE ELEVATED, CALL LIGHT IN REACH, WILL CONT TO MONITOR UNTIL REPORT GIVEN TO DAY RN.
[2021-01-31 11:21] LABS: International Normalized Ratio 1.92; Prothrombin Time Results 19.8 Sec (9.7-11.5)
--- NOTE | 2021-01-31 18:58 | NUR ---
SHIFT SUMMARY REAL COMPLAINED OF FOOT PAIN THIS SHIFT, GOT IV MORPHINE TO GOOD EFFECT. SURGICAL DRESSING STILL C/D/I. TELE DISCONTINUED. CBGS WNL. LLE ELEVATED. INDEP TO BR, PT IS AWARE OF THE 50% WEIGTH BEARING RESTRICTION. CALL LIGHT IN REACH, REPORT GIVEN TO NIGHT NURSE
--- NOTE | 2021-01-31 22:01 | NUR ---
PT GAVE THIS STUDENT PERMISSION TO PROVIDE CARE ON 01/31 @ 5868.
[2021-02-01 05:21] LABS: Hematocrit 35.6 % (37.0-53.0); Hemoglobin 11.7 g/dL (13.5-17.5); Mean Corpuscular HGB Conc 32.9 g/dL (31.5-36.5); Mean Corpuscular Volume 88 fL (80-100); Mean Platelet Volume 9.5 fL (9.1-12.4); Platelet Count 156 K/mm3 (150-400); RDW Coefficient Variation 13.8 % (11.7-14.2); RDW Standard Deviation 44.1 fL (35.1-46.3); Red Blood Cell Count 4.04 M/mm3 (4.30-5.90); White Blood Cell Count 7.05 K/mm3 (4.00-11.30)
[2021-02-01 05:45] LABS: Bun/Creatinine Ratio 15.6 (12.0-20.0); Calcium, Blood 8.8 mg/dL (8.5-10.1); Creatinine, Blood 1.41 mg/dL (0.60-1.20); Magnesium, Blood 1.8 mg/dL (1.6-2.4); Potassium, Blood 4.4 mmol/L (3.5-5.5)
--- NOTE | 2021-02-01 05:59 | NUR ---
HOME DESIGNER REPORT. PT A&O X4. PT TOOK SHOWER BEFORE BED. GAVE PRN PAIN MEDICATION; MORPHINE @ 2200 & 0415 PT REMAINED AT A PAIN LEVEL OF 6. EDUCATED PT ON IMPORTANCE OF KEEPING L FOOT ELEVATED. PT ELEVATED LEFT FOOT ON PILLOW THROUGHOUT THE NIGHT. DRESSING ON LEFT FOOT C/D/I. NO ACUTE CHANGES AT THIS TIME. BED IN LOWEST POSITION AND CALL LIGHT WITHIN REACH. WILL CONTINUE TO MONITOR AND REPORT TO ONCOMING RN.
--- NOTE | 2021-02-01 06:23 | NUR ---
SHIFT SUMMARY NO ACUTE CHANGES THIS SHIFT, MEDICATED 2X FOR PAIN & EDUCATED PT ON IMPORTANCE OF ELEVATING LLE, NO OTHER C/O, SLEPT T/O THE NIGHT, BEDRESTING AT THIS TIME, CALL LIGHT IN REACH, WILL CONT T0 MONITOR UNTIL REPORT GIVEN TO DAY RN.
[2021-02-01 10:47] LABS: International Normalized Ratio 1.73; Prothrombin Time Results 17.9 Sec (9.7-11.5)
--- NOTE | 2021-02-01 19:00 | NUR ---
SHIFT SUMMARY REAL DID WELL TRANSITIONING TO PO PAIN MEDS. DR GROSS CAME AND DID A DRESSING CHANGE SHORTLY BEFORE SHIFT CHANGE, DRESSING C/D/I. INSULIN ORDERED BUT CBGS WNL. PT INDEP IN ROOM WITH WALKER, PT AWARE OF 50% WT BEARING LIMIT. PT FEELS CONSTIPATED, BOWEL REGIMEN GIVEN, PT DRANK PRUNE JUICE. CALL LIGHT IN REACH, REPORT GIVEN TO NIGHT NURSE
--- NOTE | 2021-02-02 00:53 | NUR ---
PT GAVE THIS STUDENT NURSE PERMISSION TO PROVIDE CARE ON 02/01/21 @ 7596.
--- NOTE | 2021-02-02 04:16 | NUR ---
PT RESTED COMFORTABLY THROUGHOUT THE NIGHT. ELEVATED LEFT FOOT ON PILLOWS. PT REPORTS PASSING GAS; NO BM. DRESSING @ LEFT FOOT C/D/I. PT RECEIVED PAIN MEDICATION X 2. BED IN LOWEST POSTION, CALL LIGHT IN REACH.WILL CONTINUE TO MONITOR UNTIL REPORT GIVEN TO DAY RN.
--- NOTE | 2021-02-02 04:43 | NUR ---
SHIFT SUMMARY NO ACUTE CHANGES THIS SHIFT, MEDICATED 2X FOR PAIN, NO BM THE SHIFT, BOWEL CARE CONTINUES, SLEEPING AT THIS TIME, CALL LIGHT IN REACH, WILL CONT TO MONITOR UNTIL REPORT GIVEN TO DAY RN.
[2021-02-02 05:18] LABS: BASOPHILS ABSOLUTE AUTO 0.03 K/mm3 (0.00-0.23); BASOPHILS PERCENT AUTO 1 % (0-2); EOSINOPHILS ABSOLUTE AUTO 0.21 K/mm3 (0.00-0.68); EOSINOPHILS PERCENT AUTO 3 % (0-6); Hematocrit 35.9 % (37.0-53.0); Hemoglobin 11.7 g/dL (13.5-17.5); IMMATURE GRAN ABSOLUTE AUTO 0.03 K/mm3 (0.00-0.10); IMMATURE GRAN PERCENT AUTO 1 % (0-1); LYMPHOCYTES ABSOLUTE AUTO 0.94 K/mm3 (0.84-5.20); LYMPHOCYTES PERCENT AUTO 14 % (21-46); MONOCYTES ABSOLUTE AUTO 0.52 K/mm3 (0.16-1.47); MONOCYTES PERCENT AUTO 8 % (4-13); Mean Corpuscular HGB 28.2 pg (26.0-34.0); Mean Corpuscular HGB Conc 32.6 g/dL (31.5-36.5); Mean Corpuscular Volume 87 fL (80-100); Mean Platelet Volume 9.4 fL (9.1-12.4); NEUTROPHILS ABSOLUTE AUTO 4.92 K/mm3 (1.96-9.15); NEUTROPHILS PERCENT AUTO 74 % (41-73); Platelet Count 166 K/mm3 (150-400); RDW Coefficient Variation 13.4 % (11.7-14.2); RDW Standard Deviation 42.7 fL (35.1-46.3); Red Blood Cell Count 4.15 M/mm3 (4.30-5.90); White Blood Cell Count 6.65 K/mm3 (4.00-11.30)
[2021-02-02 05:32] LABS: International Normalized Ratio 1.65; Prothrombin Time Results 17.2 Sec (9.7-11.5)
[2021-02-02 05:42] LABS: Albumin, Blood 2.8 g/dL (3.4-5.0); Albumin/Globulin Ratio 0.6 (0.8-1.8); Bilirubin, Total 0.7 mg/dL (0.1-1.0); Bun/Creatinine Ratio 15.9 (12.0-20.0); Calcium, Blood 8.9 mg/dL (8.5-10.1); Creatinine, Blood 1.32 mg/dL (0.60-1.20); Globulin, Blood 4.5 g/dL (2.2-4.0); Potassium, Blood 4.4 mmol/L (3.5-5.5); Total Protein, Blood 7.3 g/dL (6.4-8.2)
--- NOTE | 2021-02-02 18:32 | NUR ---
DR. BASURTO NOTIFIED OF PT BLOOD PRESSURES, SHE WOULD LIKE TO CONTINUE TO MONITOR. NO NEW ORDERS RECIEVED
--- NOTE | 2021-02-02 18:34 | NUR ---
CLIENT AA&OX4. PLEASANT AND COOPERATIVE. 50% WB LLE. SBA. LLE DRESSING CDI. MEDICATED FOR PAIN X2 WITH GOOD RESULTS. BP TRENDING HIGH MD AWARE, WOULD LIKE RN TO MONITOR. DISCHARGE DELAYED D/T INR 1.65 WARFARIN STARTED 02/02. CLIENT HAS NO ISSUES OR CONCERNS
[2021-02-03 05:06] LABS: International Normalized Ratio 2.06; Prothrombin Time Results 21.2 Sec (9.7-11.5)
--- NOTE | 2021-02-03 06:24 | NUR ---
PPT IS A/O PLEASANT, SURGICAL DRESSING TO LEFT FOOT CDI. HX OF PAST TOE AMPUTATIONS PT MEDICATED PER EMAR FOR LEFT FOOT PAIN. CBG AC/HS.
[2021-02-03] MEDS ORDERED: DOCU100 PO (11:31)
[2021-02-03] MEDS ORDERED: HUMALOG KW100 UNIT/1 SC (11:32)
[2021-02-03] MEDS ORDERED: Senna-Extra17.2 MG PO (11:33)
[2021-02-03] MEDS ORDERED: MIRALAX17 GM PO (11:33)
[2021-02-03] MEDS ORDERED: VISBIOME 112.51 EACH PO (11:34)
[2021-02-03] MEDS ORDERED: AMOCLA875 PO (11:35)
[2021-02-03] MEDS ORDERED: PERCOCET 10-321 EAC1 PO (11:37)
--- NOTE | 2021-02-03 14:16 | NUR ---
DISCHARGE SUMMARY NO ACUTE CHANGES THIS SHIFT. PT'S PAIN MANAGED WELL PER EMR. PRESCRIPTIONS GIVEN FOR CRUTCHES AT HOME AND PAIN MEDICATION. RECEIVED DOSE OF IV ANTIBIOTICS BEFORE LEAVING. WENT OVER DISCHARGE INSTRUCTIONS WITH THE PATIENT AND HE EXHIBITED UNDERSTANDING. IV DC'D WNL. VSS; DISCHARGED HOME WITH AND TO FOLLOW UP WITH [facility] ON FRIDAY.
== END 2021-02-03 14:18 | disposition home health service (06) | DRG 629 ==
LOC: ER 15:10 → MEDS 15:11 → ENPENDDIS 01-31 11:22 → MEDS 02-01 10:39
PROVIDERS: Internal Medicine; Pharmacist; Physician Assistant; Podiatrist; ADMIT Family Medicine
PROC: 30233K1 Transfusion of Nonautologous Frozen Plasma into Peripheral Vein, Percutaneous Approach (ICD-10-PCS; 2021-01-30)
PROC: 0QBP0ZZ Excision of Left Metatarsal, Open Approach (ICD-10-PCS; principal; 2021-01-30 09:30)
DX: E11.69 Type 2 diabetes mellitus with other specified complication (principal); M86.172 Other acute osteomyelitis, left ankle and foot; I48.20 Chronic atrial fibrillation, unspecified; R65.10 Systemic inflammatory response syndrome (SIRS) of non-infectious origin without acute organ dysfunction; E11.51 Type 2 diabetes mellitus with diabetic peripheral angiopathy without gangrene; Z20.822 Contact with and (suspected) exposure to COVID-19; E11.621 Type 2 diabetes mellitus with foot ulcer; L97.524 Non-pressure chronic ulcer of other part of left foot with necrosis of bone; E11.22 Type 2 diabetes mellitus with diabetic chronic kidney disease; I12.9 Hypertensive chronic kidney disease with stage 1 through stage 4 chronic kidney disease, or unspecified chronic kidney disease; N18.30 Chronic kidney disease, stage 3 unspecified; G89.29 Other chronic pain; M54.9 Dorsalgia, unspecified; E11.40 Type 2 diabetes mellitus with diabetic neuropathy, unspecified; J44.9 Chronic obstructive pulmonary disease, unspecified; G47.33 Obstructive sleep apnea (adult) (pediatric); K21.9 Gastro-esophageal reflux disease without esophagitis; E78.5 Hyperlipidemia, unspecified; E11.21 Type 2 diabetes mellitus with diabetic nephropathy; E11.649 Type 2 diabetes mellitus with hypoglycemia without coma; D64.9 Anemia, unspecified; R79.1 Abnormal coagulation profile; Z86.718 Personal history of other venous thrombosis and embolism; Z87.891 Personal history of nicotine dependence; Z88.8 Allergy status to other drugs, medicaments and biological substances; Z88.1 Allergy status to other antibiotic agents; Z89.412 Acquired absence of left great toe; Z89.422 Acquired absence of other left toe(s); Z79.899 Other long term (current) drug therapy; Z79.84 Long term (current) use of oral hypoglycemic drugs; Z79.4 Long term (current) use of insulin; Z79.891 Long term (current) use of opiate analgesic
CPT/HCPCS: 0241U; 36415; 36430; 73620; 80048; 80053; 82947; 83605; 83735; 83880; 85025; 85027; 85610; 86900; 86901; 87040; 87071; 87075; 87205; 88305; 88311; 96374-59; 96375-59; 97116; 97161; 97165; 97530; 99284-25; A9270; J1170; J2250; J2270; J2370; J2405; J2543; J2704; J3010; J7030; P9059

== ENCOUNTER → 2021-02-12 | Outpatient (CLI) | payer MEDICARE ==
[~2021-02-12] MED LIST changes: +AMOX-CLAV 875-1 EAC5; +BASAGLAR K100 UNIT/1 SC; +FENOFIBRATE48 MG PO; +HUMALOG KW100 UNIT/1 SC; +MIRALAX17 GM PO; +OXYCODONE-ACET1 EAC3; +PERCOCET 10-321 EAC1 PO; +Senna-Extra17.2 MG PO; +VISBIOME 112.51 EACH PO
[2021-02-12 18:08] LABS: BASOPHILS ABSOLUTE AUTO 0.04 K/mm3 (0.00-0.23); BASOPHILS PERCENT AUTO 1 % (0-2); EOSINOPHILS ABSOLUTE AUTO 0.12 K/mm3 (0.00-0.68); EOSINOPHILS PERCENT AUTO 2 % (0-6); Hematocrit 41.7 % (37.0-53.0); Hemoglobin 13.8 g/dL (13.5-17.5); IMMATURE GRAN ABSOLUTE AUTO 0.05 K/mm3 (0.00-0.10); IMMATURE GRAN PERCENT AUTO 1 % (0-1); LYMPHOCYTES ABSOLUTE AUTO 1.31 K/mm3 (0.84-5.20); LYMPHOCYTES PERCENT AUTO 18 % (21-46); MONOCYTES ABSOLUTE AUTO 0.56 K/mm3 (0.16-1.47); MONOCYTES PERCENT AUTO 8 % (4-13); Mean Corpuscular HGB 28.5 pg (26.0-34.0); Mean Corpuscular HGB Conc 33.1 g/dL (31.5-36.5); Mean Corpuscular Volume 86 fL (80-100); Mean Platelet Volume 8.8 fL (9.1-12.4); NEUTROPHILS ABSOLUTE AUTO 5.03 K/mm3 (1.96-9.15); NEUTROPHILS PERCENT AUTO 71 % (41-73); Platelet Count 253 K/mm3 (150-400); RDW Coefficient Variation 14.3 % (11.7-14.2); RDW Standard Deviation 43.8 fL (35.1-46.3); Red Blood Cell Count 4.84 M/mm3 (4.30-5.90); White Blood Cell Count 7.11 K/mm3 (4.00-11.30)
== END | disposition home or self-care (01) ==
LOC: LAB SHORT 17:58 → LAB EV 17:58
PROVIDERS: Physician Assistant
DX: M79.672 Pain in left foot (principal)
CPT/HCPCS: 83605; 85025

== ENCOUNTER 2021-06-05 13:33 | Day surgery (SDC) | payer MEDICARE, SELFPAY ==
[~2021-06-05] VITALS: Ht 188 cm; Wt 108.1 kg
[2021-06-06] MEDS ORDERED: FENO48 PO (12:50)
[2021-06-06] MEDS ORDERED: LOSA25 PO (12:51)
== END 2021-06-05 15:40 | disposition home or self-care (01) ==
LOC: ORSCSDS 13:33
PROVIDERS: Internal Medicine Gastroenterology
PROC: 0DBN8ZX Excision of Sigmoid Colon, Via Natural or Artificial Opening Endoscopic, Diagnostic (ICD-10-PCS; principal; 2021-06-05 15:00)
PROC: 0DBL8ZX Excision of Transverse Colon, Via Natural or Artificial Opening Endoscopic, Diagnostic (ICD-10-PCS; principal; 2021-06-05 15:00)
DX: R63.4 Abnormal weight loss (principal); R19.7 Diarrhea, unspecified; D12.5 Benign neoplasm of sigmoid colon; D12.3 Benign neoplasm of transverse colon; E11.9 Type 2 diabetes mellitus without complications; Z79.01 Long term (current) use of anticoagulants; Z79.899 Other long term (current) drug therapy
CPT/HCPCS: 82947; 88305; J0330; J0461; J2405; J2704; J7120

== ENCOUNTER 2021-06-06 11:43 | Day surgery (SDC) | payer MEDICARE ==
[~2021-06-06] VITALS: Ht 190.5 cm; Wt 105.1 kg
[~2021-06-06 11:43] MED LIST changes: -LOSA25 PO
[2021-06-06] MEDS ORDERED: FENO48 PO (12:50)
[2021-06-06] MEDS ORDERED: LOSA25 PO (12:51)
--- NOTE | 2021-06-06 12:58 | NUR ---
06/06/21 1258 Yann Reed FIRST IV IN RIGHT HAND MISSED SECOND IV IN RIGHT FOREARM MISSED THIRD IV IN RIGHT FOREARM WORKED
== END 2021-06-06 14:40 | disposition home or self-care (01) ==
LOC: ORSCSDS 11:43
PROVIDERS: Internal Medicine Gastroenterology
PROC: 0DBH8ZX Excision of Cecum, Via Natural or Artificial Opening Endoscopic, Diagnostic (ICD-10-PCS; principal; 2021-06-06 13:15)
PROC: 0DBL8ZX Excision of Transverse Colon, Via Natural or Artificial Opening Endoscopic, Diagnostic (ICD-10-PCS; principal; 2021-06-06 13:15)
PROC: 0DBP8ZX Excision of Rectum, Via Natural or Artificial Opening Endoscopic, Diagnostic (ICD-10-PCS; principal; 2021-06-06 13:15)
PROC: 0DBK8ZX Excision of Ascending Colon, Via Natural or Artificial Opening Endoscopic, Diagnostic (ICD-10-PCS; principal; 2021-06-06 13:15)
DX: R19.7 Diarrhea, unspecified (principal); K52.832 Lymphocytic colitis; D12.0 Benign neoplasm of cecum; D12.2 Benign neoplasm of ascending colon; D12.3 Benign neoplasm of transverse colon; K62.1 Rectal polyp; K57.30 Diverticulosis of large intestine without perforation or abscess without bleeding; K64.8 Other hemorrhoids; R63.4 Abnormal weight loss; I48.0 Paroxysmal atrial fibrillation; G47.33 Obstructive sleep apnea (adult) (pediatric); E11.9 Type 2 diabetes mellitus without complications; Z86.718 Personal history of other venous thrombosis and embolism; Z87.891 Personal history of nicotine dependence; Z79.01 Long term (current) use of anticoagulants; Z79.4 Long term (current) use of insulin; Z79.899 Other long term (current) drug therapy
CPT/HCPCS: 82947; 88305; J0330; J0461; J2405; J2704; J7120

== ENCOUNTER → 2021-06-06 | Outpatient (CLI) | payer MEDICARE, OTHER ==
[~2021-06-06] MED LIST changes: +LOSA25 PO
== END ==
LOC: LAB 16:00 → LAB SHORT 16:00
DX: N39.0 Urinary tract infection, site not specified (principal); Z88.6 Allergy status to analgesic agent; Z88.1 Allergy status to other antibiotic agents; Z88.8 Allergy status to other drugs, medicaments and biological substances
CPT/HCPCS: 87077; 87086; 87186

== ENCOUNTER → 2022-05-07 | Outpatient (CLI) | payer MEDICARE ==
[~2022-05-07] MED LIST changes: +LOSA25 PO
== END | disposition home or self-care (01) ==
LOC: LAB 17:13 → LAB SHORT 17:13
DX: N39.0 Urinary tract infection, site not specified (principal)
CPT/HCPCS: 87086

== ENCOUNTER 2023-02-23 16:29 | Emergency (ER) | payer MEDICARE ==
[~2023-02-23] VITALS: Ht 190.5 cm; Wt 108.9 kg
[2023-02-23 16:35] VITALS: BP 124/98
[2023-02-23 17:32] LABS: BASOPHILS ABSOLUTE AUTO 0.04 K/mm3 (0.00-0.23); BASOPHILS PERCENT AUTO 0 % (0-2); EOSINOPHILS PERCENT AUTO 1 % (0-6); Hematocrit 38.9 % (37.0-53.0); Hemoglobin 12.9 g/dL (13.5-17.5); IMMATURE GRAN ABSOLUTE AUTO 0.04 K/mm3 (0.00-0.10); IMMATURE GRAN PERCENT AUTO 0 % (0-1); LYMPHOCYTES ABSOLUTE AUTO 0.88 K/mm3 (0.84-5.20); LYMPHOCYTES PERCENT AUTO 9 % (21-46); MONOCYTES ABSOLUTE AUTO 0.82 K/mm3 (0.16-1.47); MONOCYTES PERCENT AUTO 9 % (4-13); Mean Corpuscular HGB 29.7 pg (26.0-34.0); Mean Corpuscular HGB Conc 33.2 g/dL (31.5-36.5); Mean Corpuscular Volume 89 fL (80-100); Mean Platelet Volume 8.9 fL (9.1-12.4); NEUTROPHILS ABSOLUTE AUTO 7.56 K/mm3 (1.96-9.15); NEUTROPHILS PERCENT AUTO 80 % (41-73); Platelet Count 167 K/mm3 (150-400); RDW Coefficient Variation 13.5 % (11.7-14.2); RDW Standard Deviation 44.2 fL (35.1-46.3); Red Blood Cell Count 4.35 M/mm3 (4.30-5.90); White Blood Cell Count 9.44 K/mm3 (4.00-11.30)
[2023-02-23 17:48] LABS: C-REACTIVE PROTEIN, EXT RANGE 2.06 mg/dL (0.000-0.300)
[2023-02-23 17:50] LABS: Albumin, Blood 3.7 g/dL (3.4-5.0); Albumin/Globulin Ratio 0.9 (0.8-1.8); Bilirubin, Total 0.7 mg/dL (0.1-1.0); Bun/Creatinine Ratio 22.6 (12.0-20.0); Creatinine, Blood 1.77 mg/dL (0.60-1.20); Potassium, Blood 3.9 mmol/L (3.5-5.5); Total Protein, Blood 7.7 g/dL (6.4-8.2)
[2023-02-23] MEDS ORDERED: ATORVASTATIN CA20 MG PO (17:53)
[2023-02-23] MEDS ORDERED: AMLODIPINE BESYL5 MG PO (17:53)
[2023-02-23] MEDS ORDERED: AMOCLA875 PO (18:23)
[2023-02-23] MEDS ORDERED: Percocet 5-3251 EACH PO (18:24)
== END 2023-02-23 18:47 | disposition home or self-care (01) ==
LOC: ER 16:29
PROVIDERS: Student in an Organized Health Care Education/Training Program
DX: L03.116 Cellulitis of left lower limb (principal); Z88.8 Allergy status to other drugs, medicaments and biological substances; Z88.1 Allergy status to other antibiotic agents; Z79.899 Other long term (current) drug therapy; Z79.01 Long term (current) use of anticoagulants; Z87.891 Personal history of nicotine dependence; I10 Essential (primary) hypertension; E11.40 Type 2 diabetes mellitus with diabetic neuropathy, unspecified; I48.91 Unspecified atrial fibrillation; J44.9 Chronic obstructive pulmonary disease, unspecified; G47.33 Obstructive sleep apnea (adult) (pediatric); K21.9 Gastro-esophageal reflux disease without esophagitis; E78.5 Hyperlipidemia, unspecified
CPT/HCPCS: 36415; 73630; 80053; 83605; 85025; 86140; 87070; 87075; 87077; 87186; 87205; 99283-25; A9270

== ENCOUNTER 2023-03-03 11:10 | Emergency (ER) | payer MEDICARE ==
[~2023-03-03] VITALS: Ht 190.5 cm; Wt 103.9 kg
[~2023-03-03 11:10] MED LIST changes: +AMLODIPINE BESYL5 MG PO; +ATORVASTATIN CA20 MG PO
[2023-03-03 12:01] LABS: BASOPHILS ABSOLUTE AUTO 0.04 K/mm3 (0.00-0.23); BASOPHILS PERCENT AUTO 0 % (0-2); EOSINOPHILS ABSOLUTE AUTO 0.09 K/mm3 (0.00-0.68); EOSINOPHILS PERCENT AUTO 1 % (0-6); Hematocrit 47.9 % (37.0-53.0); IMMATURE GRAN ABSOLUTE AUTO 0.03 K/mm3 (0.00-0.10); IMMATURE GRAN PERCENT AUTO 0 % (0-1); LYMPHOCYTES ABSOLUTE AUTO 0.91 K/mm3 (0.84-5.20); LYMPHOCYTES PERCENT AUTO 9 % (21-46); MONOCYTES ABSOLUTE AUTO 0.76 K/mm3 (0.16-1.47); MONOCYTES PERCENT AUTO 8 % (4-13); Mean Corpuscular HGB Conc 33.4 g/dL (31.5-36.5); Mean Corpuscular Volume 87 fL (80-100); Mean Platelet Volume 9.4 fL (9.1-12.4); NEUTROPHILS ABSOLUTE AUTO 8.21 K/mm3 (1.96-9.15); NEUTROPHILS PERCENT AUTO 82 % (41-73); Platelet Count 261 K/mm3 (150-400); RDW Coefficient Variation 13.2 % (11.7-14.2); RDW Standard Deviation 41.9 fL (35.1-46.3); Red Blood Cell Count 5.52 M/mm3 (4.30-5.90); White Blood Cell Count 10.04 K/mm3 (4.00-11.30)
[2023-03-03 12:19] LABS: Bun/Creatinine Ratio 22.8 (12.0-20.0); C-REACTIVE PROTEIN, EXT RANGE 0.588 mg/dL (0.000-0.300); Calcium, Blood 9.9 mg/dL (8.5-10.1); Creatinine, Blood 1.84 mg/dL (0.60-1.20); Potassium, Blood 4.3 mmol/L (3.5-5.5)
[2023-03-03 13:00] VITALS: BP 124/111
== END 2023-03-03 13:47 | disposition home or self-care (01) ==
LOC: ER 11:10
PROVIDERS: Emergency Medicine
DX: L84 Corns and callosities (principal); Z88.8 Allergy status to other drugs, medicaments and biological substances; Z88.1 Allergy status to other antibiotic agents; Z79.899 Other long term (current) drug therapy; Z79.01 Long term (current) use of anticoagulants; I10 Essential (primary) hypertension; I48.91 Unspecified atrial fibrillation; E11.40 Type 2 diabetes mellitus with diabetic neuropathy, unspecified; J44.9 Chronic obstructive pulmonary disease, unspecified; G47.33 Obstructive sleep apnea (adult) (pediatric); K21.9 Gastro-esophageal reflux disease without esophagitis; E78.5 Hyperlipidemia, unspecified; Z87.891 Personal history of nicotine dependence
CPT/HCPCS: 36415; 73620; 80048; 85025; 85651; 86140; 99283-25

== ENCOUNTER → 2023-07-03 | Outpatient (CLI) | payer MEDICARE | LOC: LAB SHORT 12:00 → LAB 12:00 | DX: N39.0 Urinary tract infection, site not specified (principal) | CPT/HCPCS: 87086 ==

== ENCOUNTER 2023-09-01 10:56 | Emergency (ER) | payer MEDICARE ==
[~2023-09-01] VITALS: Ht 190.5 cm; Wt 106.6 kg
[2023-09-01 11:56] LABS: BASOPHILS ABSOLUTE AUTO 0.04 K/mm3 (0.00-0.23); BASOPHILS PERCENT AUTO 0 % (0-2); EOSINOPHILS ABSOLUTE AUTO 0.17 K/mm3 (0.00-0.68); EOSINOPHILS PERCENT AUTO 2 % (0-6); Hematocrit 37.7 % (37.0-53.0); Hemoglobin 12.3 g/dL (13.5-17.5); IMMATURE GRAN ABSOLUTE AUTO 0.08 K/mm3 (0.00-0.10); IMMATURE GRAN PERCENT AUTO 1 % (0-1); LYMPHOCYTES ABSOLUTE AUTO 0.96 K/mm3 (0.84-5.20); LYMPHOCYTES PERCENT AUTO 9 % (21-46); MONOCYTES ABSOLUTE AUTO 0.99 K/mm3 (0.16-1.47); MONOCYTES PERCENT AUTO 9 % (4-13); Mean Corpuscular HGB 28.4 pg (26.0-34.0); Mean Corpuscular HGB Conc 32.6 g/dL (31.5-36.5); Mean Corpuscular Volume 87 fL (80-100); Mean Platelet Volume 9.7 fL (9.1-12.4); NEUTROPHILS ABSOLUTE AUTO 9.01 K/mm3 (1.96-9.15); NEUTROPHILS PERCENT AUTO 80 % (41-73); Platelet Count 241 K/mm3 (150-400); RDW Coefficient Variation 14.9 % (11.7-14.2); RDW Standard Deviation 47.6 fL (35.1-46.3); Red Blood Cell Count 4.33 M/mm3 (4.30-5.90); White Blood Cell Count 11.25 K/mm3 (4.00-11.30)
[2023-09-01 12:23] LABS: Albumin, Blood 3.3 g/dL (3.4-5.0); Albumin/Globulin Ratio 0.7 (0.8-1.8); Bilirubin, Total 0.7 mg/dL (0.1-1.0); Bun/Creatinine Ratio 22.7 (12.0-20.0); Calcium, Blood 9.9 mg/dL (8.5-10.1); Creatinine, Blood 1.5 mg/dL (0.60-1.20); Globulin, Blood 4.9 g/dL (2.2-4.0); Potassium, Blood 4.4 mmol/L (3.5-5.5); Total Protein, Blood 8.2 g/dL (6.4-8.2)
[2023-09-01 13:33] VITALS: BP 158/114
[2023-09-01] MEDS ORDERED: AMOCLA875 PO (13:56)
[2023-09-01] MEDS ORDERED: Norco 5-325 Ta1 EACH PO (13:58)
== END 2023-09-01 14:32 | disposition home or self-care (01) ==
LOC: ER 10:56
PROVIDERS: Physician Assistant
DX: L03.116 Cellulitis of left lower limb (principal); I10 Essential (primary) hypertension; J44.9 Chronic obstructive pulmonary disease, unspecified; E11.40 Type 2 diabetes mellitus with diabetic neuropathy, unspecified; E78.5 Hyperlipidemia, unspecified; I48.91 Unspecified atrial fibrillation; Z88.1 Allergy status to other antibiotic agents; Z88.8 Allergy status to other drugs, medicaments and biological substances; Z79.899 Other long term (current) drug therapy; Z79.01 Long term (current) use of anticoagulants; Z87.891 Personal history of nicotine dependence
CPT/HCPCS: 73620; 80053; 85025; 99283-25

== ENCOUNTER 2023-09-24 14:26 | Inpatient (IN) | payer MEDICARE ==
[~2023-09-24] VITALS: Ht 190.5 cm; Wt 104.7 kg
[2023-09-24 15:09] LABS: BASOPHILS ABSOLUTE AUTO 0.04 K/mm3 (0.00-0.23); BASOPHILS PERCENT AUTO 1 % (0-2); EOSINOPHILS ABSOLUTE AUTO 0.14 K/mm3 (0.00-0.68); EOSINOPHILS PERCENT AUTO 2 % (0-6); Hematocrit 37.6 % (37.0-53.0); Hemoglobin 12.2 g/dL (13.5-17.5); IMMATURE GRAN ABSOLUTE AUTO 0.03 K/mm3 (0.00-0.10); IMMATURE GRAN PERCENT AUTO 0 % (0-1); LYMPHOCYTES ABSOLUTE AUTO 0.22 K/mm3 (0.84-5.20); LYMPHOCYTES PERCENT AUTO 3 % (21-46); MONOCYTES PERCENT AUTO 5 % (4-13); Mean Corpuscular HGB 28.3 pg (26.0-34.0); Mean Corpuscular HGB Conc 32.4 g/dL (31.5-36.5); Mean Corpuscular Volume 87 fL (80-100); Mean Platelet Volume 9.3 fL (9.1-12.4); NEUTROPHILS ABSOLUTE AUTO 7.01 K/mm3 (1.96-9.15); NEUTROPHILS PERCENT AUTO 89 % (41-73); NRBC ABSOLUTE 0.02 K/mm3 (0.00-0.02); NRBC Auto 0.3 /100 WBC (0.0-0.2); Platelet Count 193 K/mm3 (150-400); RDW Coefficient Variation 15.4 % (11.7-14.2); RDW Standard Deviation 49.4 fL (35.1-46.3); Red Blood Cell Count 4.31 M/mm3 (4.30-5.90); White Blood Cell Count 7.84 K/mm3 (4.00-11.30)
[2023-09-24 15:33] LABS: Albumin, Blood 3.1 g/dL (3.4-5.0); Albumin/Globulin Ratio 0.6 (0.8-1.8); Bilirubin, Total 0.7 mg/dL (0.1-1.0); Bun/Creatinine Ratio 26.3 (12.0-20.0); Calcium, Blood 9.2 mg/dL (8.5-10.1); Creatinine, Blood 2.09 mg/dL (0.60-1.20); Globulin, Blood 4.8 g/dL (2.2-4.0); Potassium, Blood 4.7 mmol/L (3.5-5.5); Total Protein, Blood 7.9 g/dL (6.4-8.2)
[2023-09-24 17:54] LABS: International Normalized Ratio 1.68; Prothrombin Time Results 17.1 Sec (9.7-11.5)
[2023-09-24 18:53] VITALS: BP 138/80
--- NOTE | 2023-09-24 23:16 | NUR ---
THIS RN IS ASSUMING CARE OF THIS FROM MATTHEW FERRO
--- NOTE | 2023-09-24 23:17 | NUR ---
THIS RN IS ASSUMING CARE OF THIS PT FROM MATTHEW FERRO
[2023-09-25 04:20] LABS: Hemoglobin 10.5 g/dL (13.5-17.5); Mean Corpuscular HGB 27.9 pg (26.0-34.0); Mean Corpuscular HGB Conc 31.8 g/dL (31.5-36.5); Mean Corpuscular Volume 88 fL (80-100); Mean Platelet Volume 9.3 fL (9.1-12.4); Platelet Count 139 K/mm3 (150-400); RDW Coefficient Variation 15.3 % (11.7-14.2); RDW Standard Deviation 48.9 fL (35.1-46.3); Red Blood Cell Count 3.76 M/mm3 (4.30-5.90); White Blood Cell Count 4.16 K/mm3 (4.00-11.30)
[2023-09-25 04:51] LABS: Bun/Creatinine Ratio 22.9 (12.0-20.0); Calcium, Blood 8.5 mg/dL (8.5-10.1); Creatinine, Blood 1.92 mg/dL (0.60-1.20); Potassium, Blood 4.5 mmol/L (3.5-5.5)
[2023-09-25 05:31] VITALS: BP 143/92
--- NOTE | 2023-09-25 05:47 | NUR ---
SHIFT SUMMARY PT RESTLESS T/O NIGHT. SLEEPS FOR SHORT AMOUNTS OF TIME. PAIN MANAGED PER EMAR. A&O X4. PT MADE NPO AT MIDNIGHT FOR POSSIBLE SURGERY TODAY. HEPARIN DRIP ADJUSTED PER PHARMACY. ABX RUNNING. NO OTHER CONCERNS AT THIS TIME. CALL LIGHT WITHIN REACH.
[2023-09-25 07:41] VITALS: BP 140/98
[2023-09-25 07:44] VITALS: BP 146/91
--- NOTE | 2023-09-25 08:04 | NUR ---
PT CALLED RN AT APROX 0700. PT CONCERNED THAT URINE IS DARK IN COLOR. PT URINE APPEARS BRIGHT RED IN COLOR. PT DID NOT USE URINAL. CLEAN URINAL PROVIED AND PT ASKED TO USE SO SPECIMIN CAN BE COLLECTED. PT DENIES ANY PAIN WITH URINATION. REPORTS HX OF UTI BUT DOES NOT FEEL THAT HE HAS ANY SX OF UTI AT THIS TIME. PT IS ON HEPARIN GTT. NOTIFIED. ORDER TO STOP HEPARIN GTT.
[2023-09-25 10:47] LABS: Source, Urine Clean Catch
[2023-09-25 10:53] LABS: Appearance, Urine Bloody (Clear); Bilirubin, Urine Neg (Neg); Blood, Urine 5+ (Neg); Color, Urine Red (P-Yellow); Glucose Qualitative, Urine Neg (Neg); Ketones, Urine Neg (Neg); Leukocyte Esterase, Urine Neg (Neg); Nitrite, Urine Neg (Neg); Protein, Urine 4+ (Neg); Specific Gravity, Urine 1.015 (1.003-1.022); Urobilinogen, Urine NORM (Normal); pH, Urine 6.5 (5.0-8.0)
[2023-09-25 11:03] LABS: Red Blood Cells, Urine TNTC /hpf (0-2)
[2023-09-25 11:04] LABS: Bacteria Few /hpf; Squamous Epithelial Cells Rare /hpf (Few)
--- NOTE | 2023-09-25 14:11 | NUR ---
PT CONTINUING TO VOID WHAT APPEARS TO BE GARRETT BLOOD. NOTIFIED, ORDER FOR H&H AT 1600. PT REPORTS LOWER ABD PAIN BUT STATES THAT HAS BEEN GOING ON "FOR A LONG TIME". NO CLOTS PRESENT IN URINAL. NO DIFFICULTY URINATING
[2023-09-25 14:22] VITALS: BP 131/90
[2023-09-25 14:23] VITALS: BP 123/83
[2023-09-25 16:11] LABS: Hematocrit 36.2 % (37.0-53.0); Hemoglobin 11.5 g/dL (13.5-17.5)
--- NOTE | 2023-09-25 19:13 | NUR ---
SHIFT SUMMARY PT CONTINUES TO HAVE MAROON COLORED URINE. 1600 H&H INCREASED FROM PREVIOUS DRAW THIS AM. PAIN IN L FOOT MANAGED WITH PO PAIN MEDICATION PER EMAR. DR GROSS NOTIFIED OF CONSULT. PT TO BE NPO AT MIDNIGHT, GINNY WILL BE IN TO SEE PT TOMORROW. IVF RUNNING 75ML/HR.
[2023-09-25 19:15] VITALS: BP 128/97
[2023-09-26] VITALS (21 sets, daily range): BP systolic 126–164; BP diastolic 88–123
[2023-09-26 04:10] LABS: BASOPHILS ABSOLUTE AUTO 0.01 K/mm3 (0.00-0.23); BASOPHILS PERCENT AUTO 0 % (0-2); EOSINOPHILS ABSOLUTE AUTO 0.33 K/mm3 (0.00-0.68); EOSINOPHILS PERCENT AUTO 10 % (0-6); Hematocrit 30.6 % (37.0-53.0); Hemoglobin 10.1 g/dL (13.5-17.5); IMMATURE GRAN ABSOLUTE AUTO 0.01 K/mm3 (0.00-0.10); IMMATURE GRAN PERCENT AUTO 0 % (0-1); LYMPHOCYTES ABSOLUTE AUTO 0.37 K/mm3 (0.84-5.20); LYMPHOCYTES PERCENT AUTO 11 % (21-46); MONOCYTES ABSOLUTE AUTO 0.25 K/mm3 (0.16-1.47); MONOCYTES PERCENT AUTO 8 % (4-13); Mean Corpuscular HGB 28.5 pg (26.0-34.0); Mean Corpuscular Volume 86 fL (80-100); Mean Platelet Volume 9.3 fL (9.1-12.4); NEUTROPHILS ABSOLUTE AUTO 2.37 K/mm3 (1.96-9.15); NEUTROPHILS PERCENT AUTO 71 % (41-73); Platelet Count 158 K/mm3 (150-400); RDW Coefficient Variation 15.2 % (11.7-14.2); RDW Standard Deviation 48.2 fL (35.1-46.3); Red Blood Cell Count 3.54 M/mm3 (4.30-5.90); White Blood Cell Count 3.34 K/mm3 (4.00-11.30)
[2023-09-26 04:30] LABS: Bun/Creatinine Ratio 19.6 (12.0-20.0); Calcium, Blood 8.5 mg/dL (8.5-10.1); Creatinine, Blood 1.43 mg/dL (0.60-1.20); Potassium, Blood 4.3 mmol/L (3.5-5.5)
--- NOTE | 2023-09-26 06:13 | NUR ---
SHIFT SUMMARY PT RESTED T/O NIGHT. UP OT THE BATHROOM, URINE IS STILL ABRIL IN COLOR. URINE IS LIGHTENING UP IN COLOR. PT WORE SCD'S ALL NIGHT. HAS BEEN NPO SINCE MIDNIGHT. PAIN MANAGED PER EMAR. VSS. PLAN TO SEE BUFFING WHEEL FORMER MACHINE THIS AM. NO OTHER CONCERNS AT THIS TIME. CALL LOGHT WITHIN REACH
--- NOTE | 2023-09-26 12:50 | NUR ---
PLAN TO COMPLETE DIALYSIS BEFORE DOING SURGERY. PT WILL GO BACK TO SURGICAL FLOOR AND HAVE SURGERY TOMORROW.
--- NOTE | 2023-09-26 12:54 | NUR ---
PT HAS 20G IV TO LEFT WRIST THAT FLUSHES WELL AND FLOWS TO GRAVITY.
--- NOTE | 2023-09-26 15:22 | NUR ---
PT ARRIVED BACK TO UNIT AT APROX 1500. LATRICIA WRAP AND GAUZE TO L FOOT WITH SMALL SPOT OF BLOOD PRESENT AT DISTAL PART OF DRESSING. PT DENIES PAIN, REPORTS FULL SENSATION TO BLE.
--- NOTE | 2023-09-26 17:50 | NUR ---
PT WITH CIWA SCORE OF 8, VERY ANXIOUS, HEADACHE, HTN, MILD TREMORS, SLIGHT AGGITATION. PT DENIES DAILY DRINKING. MD NOTIFIED, ORDER FOR CIWA PROTOCOL WELL 25MG LIBRIUM Q6. TELE STARTED ON PT, PER TELE MONITOR PT AFIB W/RATE 119.
[2023-09-27] VITALS (7 sets, daily range): BP systolic 141–166; BP diastolic 90–120
--- NOTE | 2023-09-27 06:32 | NUR ---
SHIFT SUMMARY PT IS HERE POD#1 FOR A RESECTION OF HIS 1ST METATARSAL ON HIS LEFT FOOT. PT WAS RESTING FOR MOST OF THE SHIFT, BUT AROUND 0400, HIS BP, ESPECIALLY HIS DIASTOLIC, WAS ELEVATED. TARA TUCKER NOTIFIED. GAVE PRN HYDRALAZINE, 10 MG, WHICH SEEMED TO BRING DOWN HIS BP TO A MORE STABLE READING. PT ALSO SEEMED TO BE RESTLESS AT THIS TIME. ALSO GAVE ATIVAN FOR INCREASED AGITATION. PT HAS BEEN RESTING COMFORTABLY SINCE MED ADMINISTRATION. OF NOTE, AROUND THIS SAME TIME, PT'S BANDAGE WAS LEAKING THROUGH THE LATRICIA BANDAGE DUE TO THE PATIENT PUTTING WEIGHT UPON IT. PT EDUCATED AND STAFF RE-INFORCED NOT PUTTING THE PT'S FULL WEIGHT ON HIS NEW SURGICAL SITE ON HIS LEFT FOOT. THIS RN RE-INFORCED THE PT'S DRESSING AND WRAPPED A NEW LATRICIA BANDAGE AROUND THE LEFT FOOT. BED IS IN LOWEST POSITION, CALL LIGHT IS WITHIN REACH.
[2023-09-27 11:24] LABS: International Normalized Ratio 1.11; Prothrombin Time Results 11.6 Sec (9.7-11.5)
--- NOTE | 2023-09-27 18:30 | NUR ---
SUMMARY NO ACUTE CHANGES T/O SHIFT. PT SLEPT OFF AND ON T/O AFTERNOON. MEDICATED THIS EVENING FOR PAIN. REPORTED HELPED "A LITTLE". PT GETS UP INDEPENDENTLY. WORKED WITH PHYSICAL THERAPY TODAY. DRESSING HAS REMAINED CDI TO L FOOT. ENCOURAGED PT TO ADHERE TO WB RESTRICTIONS. DENIES ALCOHOL USE OR WITHDRAWAL SYMPTOMS BUT REPORTS LIBRIUM HELPING WITH FEELINGS OF ANXIETY. CALL LIGHT IN REACH.
[2023-09-28 05:02] VITALS: BP 125/88
[2023-09-28 05:19] LABS: BASOPHILS ABSOLUTE AUTO 0.03 K/mm3 (0.00-0.23); BASOPHILS PERCENT AUTO 0 % (0-2); EOSINOPHILS ABSOLUTE AUTO 0.27 K/mm3 (0.00-0.68); EOSINOPHILS PERCENT AUTO 3 % (0-6); Hematocrit 34.6 % (37.0-53.0); IMMATURE GRAN ABSOLUTE AUTO 0.09 K/mm3 (0.00-0.10); IMMATURE GRAN PERCENT AUTO 1 % (0-1); LYMPHOCYTES PERCENT AUTO 12 % (21-46); MONOCYTES ABSOLUTE AUTO 0.56 K/mm3 (0.16-1.47); MONOCYTES PERCENT AUTO 7 % (4-13); Mean Corpuscular HGB Conc 31.8 g/dL (31.5-36.5); Mean Corpuscular Volume 88 fL (80-100); Mean Platelet Volume 9.2 fL (9.1-12.4); NEUTROPHILS ABSOLUTE AUTO 6.11 K/mm3 (1.96-9.15); NEUTROPHILS PERCENT AUTO 76 % (41-73); Platelet Count 184 K/mm3 (150-400); RDW Coefficient Variation 15.1 % (11.7-14.2); RDW Standard Deviation 48.6 fL (35.1-46.3); Red Blood Cell Count 3.93 M/mm3 (4.30-5.90); White Blood Cell Count 8.06 K/mm3 (4.00-11.30)
[2023-09-28 05:31] LABS: International Normalized Ratio 1.09; Prothrombin Time Results 11.4 Sec (9.7-11.5)
[2023-09-28 05:42] LABS: Bun/Creatinine Ratio 18.9 (12.0-20.0); Calcium, Blood 9.4 mg/dL (8.5-10.1); Creatinine, Blood 1.27 mg/dL (0.60-1.20); Potassium, Blood 4.2 mmol/L (3.5-5.5)
[2023-09-28 07:34] VITALS: BP 156/98
--- NOTE | 2023-09-28 09:55 | NUR ---
SUMMARY PT WITH NO ISSUES OF ANXIETY TONIGHT.
[2023-09-28] MEDS ORDERED: Acetaminophen650 M1 PO (11:42)
[2023-09-28] MEDS ORDERED: VISBIOME 112.51 EACH PO (11:43)
[2023-09-28] MEDS ORDERED: AMOCLA500 PO (11:44)
[2023-09-28 13:30] VITALS: BP 108/95
--- NOTE | 2023-09-28 13:35 | NUR ---
DISCHARGED REVIEWED DC INSTRUCTIONS W/PT; VERBALIZED UNDERSTANDING. IVS DC'D, CATHETERS INTACT. PT REFUSED PRESCRIPTION FOR FWW. LEFT UNIT IN WC W/POSSESSIONS AND DC PAPERWORK IN HAND, ACCOMPANIED BY RIDE. PRESCRIPTIONS FAXED TO [facility] PER PT REQUEST.
== END 2023-09-28 13:39 | disposition home or self-care (01) | DRG 617 ==
LOC: ER 14:26 → SURS 17:52
PROVIDERS: Emergency Medicine; Internal Medicine; Podiatrist; ADMIT Internal Medicine
PROC: HZ2ZZZZ Detoxification Services for Substance Abuse Treatment (ICD-10-PCS; 2023-09-26)
PROC: 0QBP0Z2 Excision of Left Metatarsal, Sesamoid Bone(s) 1st Toe, Open Approach (ICD-10-PCS; 2023-09-26)
PROC: 0Y6N0Z9 Detachment at Left Foot, Partial 1st Ray, Open Approach (ICD-10-PCS; principal; 2023-09-26 12:30)
DX: E11.69 Type 2 diabetes mellitus with other specified complication (principal); F10.939 Alcohol use, unspecified with withdrawal, unspecified; M86.672 Other chronic osteomyelitis, left ankle and foot; I48.20 Chronic atrial fibrillation, unspecified; L03.116 Cellulitis of left lower limb; E11.22 Type 2 diabetes mellitus with diabetic chronic kidney disease; N18.30 Chronic kidney disease, stage 3 unspecified; I10 Essential (primary) hypertension; G47.33 Obstructive sleep apnea (adult) (pediatric); J44.9 Chronic obstructive pulmonary disease, unspecified; E78.5 Hyperlipidemia, unspecified; E11.621 Type 2 diabetes mellitus with foot ulcer; L97.524 Non-pressure chronic ulcer of other part of left foot with necrosis of bone; E11.51 Type 2 diabetes mellitus with diabetic peripheral angiopathy without gangrene; G89.29 Other chronic pain; M54.9 Dorsalgia, unspecified; K21.9 Gastro-esophageal reflux disease without esophagitis; R31.9 Hematuria, unspecified; Z88.8 Allergy status to other drugs, medicaments and biological substances; Z88.1 Allergy status to other antibiotic agents; Z88.6 Allergy status to analgesic agent; Z79.01 Long term (current) use of anticoagulants; Z87.891 Personal history of nicotine dependence; Z89.422 Acquired absence of other left toe(s); Z86.718 Personal history of other venous thrombosis and embolism
CPT/HCPCS: 36415; 73620; 80048; 80053; 80202; 81001; 82947; 83605; 85014; 85018; 85025; 85027; 85520; 85610; 85730; 87071; 87075; 87205; 93005; 93010; 96365; 96375; 97110; 97161; 99284-25; A9270; J0360; J1100; J1644; J2001; J2060; J2250; J2371; J2405; J2543; J2704; J3010; J3370; J7030; J7050; J7120

== ENCOUNTER → 2024-04-28 | Outpatient (CLI) | payer MEDICARE ==
[~2024-04-28] MED LIST changes: +AMOCLA500 PO; +ATOR20 PO; +Acetaminophen650 M1 PO; +LOSA50 PO; +METFORMIN HCL500 M3 PO; +METO100ER PO
== END | disposition home or self-care (01) ==
LOC: LAB SHORT 16:40 → LAB 16:40
DX: N39.0 Urinary tract infection, site not specified (principal)
CPT/HCPCS: 87086

== ENCOUNTER 2024-08-24 09:55 | Day surgery (SDC) | payer MEDICARE ==
[~2024-08-24] VITALS: Ht 190.5 cm; Wt 107.9 kg
[~2024-08-24 09:55] MED LIST changes: +Lactated Ringer's 1,000 ML IV ONE; +propofoL 50 ML IV ONE
[2024-08-24] MEDS ORDERED: Lactated Ringer's 1,000 ML IV ONE (11:00)
[2024-08-24] MEDS ORDERED: propofoL 50 ML IV ONE (11:55)
[2024-08-24 12:26] VITALS: BP 140/100
== END 2024-08-24 12:28 | disposition home or self-care (01) ==
LOC: ORSCSDS 09:55
PROVIDERS: Internal Medicine Gastroenterology
PROC: 0DBK8ZX Excision of Ascending Colon, Via Natural or Artificial Opening Endoscopic, Diagnostic (ICD-10-PCS; principal; 2024-08-24 11:15)
PROC: 0DBH8ZX Excision of Cecum, Via Natural or Artificial Opening Endoscopic, Diagnostic (ICD-10-PCS; principal; 2024-08-24 11:15)
PROC: 0DBP8ZX Excision of Rectum, Via Natural or Artificial Opening Endoscopic, Diagnostic (ICD-10-PCS; principal; 2024-08-24 11:15)
PROC: 0DBM8ZX Excision of Descending Colon, Via Natural or Artificial Opening Endoscopic, Diagnostic (ICD-10-PCS; principal; 2024-08-24 11:15)
PROC: 0DBL8ZX Excision of Transverse Colon, Via Natural or Artificial Opening Endoscopic, Diagnostic (ICD-10-PCS; principal; 2024-08-24 11:15)
DX: R19.7 Diarrhea, unspecified (principal); Z86.0100 Personal history of colon polyps, unspecified; D12.3 Benign neoplasm of transverse colon; D12.2 Benign neoplasm of ascending colon; D12.4 Benign neoplasm of descending colon; K51.40 Inflammatory polyps of colon without complications; K62.1 Rectal polyp; I48.91 Unspecified atrial fibrillation; Z79.01 Long term (current) use of anticoagulants; G47.33 Obstructive sleep apnea (adult) (pediatric); F17.220 Nicotine dependence, chewing tobacco, uncomplicated; E11.22 Type 2 diabetes mellitus with diabetic chronic kidney disease; I12.9 Hypertensive chronic kidney disease with stage 1 through stage 4 chronic kidney disease, or unspecified chronic kidney disease; N18.2 Chronic kidney disease, stage 2 (mild); Z79.4 Long term (current) use of insulin; Z79.899 Other long term (current) drug therapy
CPT/HCPCS: 82947; 88305; J2704; J7120

== ENCOUNTER 2024-09-10 09:59 | Day surgery (SDC) | payer MEDICARE ==
[~2024-09-10] VITALS: Ht 190.5 cm; Wt 108.4 kg
[~2024-09-10 09:59] MED LIST changes: -Lactated Ringer's 1,000 ML IV ONE; -propofoL 50 ML IV ONE
[2024-09-10] MEDS ORDERED: Ropivacaine 0.5% HCL/PF 5 MG/ML 30ML Vial ONE (10:19)
[2024-09-10] MEDS ORDERED: Lidocaine HCl 2% 10 ML SDA ONE (10:19)
[2024-09-10] MEDS ORDERED: TAMS.4ER PO (10:28)
[2024-09-10] MEDS ORDERED: LOSA50 PO (10:28)
[2024-09-10] MEDS ORDERED: BUME2 PO (10:30)
[2024-09-10] MEDS ORDERED: Lactated Ringer's 1,000 ML IV ONE (10:45)
[2024-09-10] MEDS ORDERED: CeFAZolin Sodium 2,000 MG VIAL ONE (10:47)
[2024-09-10] MEDS ORDERED: Metoclopramide HCl 5MG / ML 2ML Vial ONE (10:47)
[2024-09-10] MEDS ORDERED: Citric Acid/Sodium Citrate 30 ML BTL ONE (10:48)
[2024-09-10] MEDS ORDERED: NS 50 ML IV ONE (10:48)
[2024-09-10] MEDS ORDERED: Dexamethasone Sod Phos 10 MG/ML 1ML VIAL ONE (11:19)
[2024-09-10] MEDS ORDERED: Ondansetron HCl 2 MG / ML 2ML Vial ONE (11:19)
[2024-09-10] MEDS ORDERED: Midazolam HCl 1MG / ML 2ML Vial ONE (11:20)
[2024-09-10] MEDS ORDERED: propofoL 20 ML IV ONE (11:20)
[2024-09-10] MEDS ORDERED: FentaNYL Citrate 50 MCG/ML 2 ML Injection ONE (11:20)
[2024-09-10 12:13] VITALS: BP 115/80
== END 2024-09-10 12:40 | disposition home or self-care (01) ==
LOC: ORSCSDS 09:59
PROVIDERS: Podiatrist Foot & Ankle Surgery
PROC: 0Y6T0Z1 Detachment at Right 3rd Toe, High, Open Approach (ICD-10-PCS; principal; 2024-09-10 11:30)
DX: E11.42 Type 2 diabetes mellitus with diabetic polyneuropathy (principal); L97.513 Non-pressure chronic ulcer of other part of right foot with necrosis of muscle; L03.031 Cellulitis of right toe; J44.9 Chronic obstructive pulmonary disease, unspecified; F41.9 Anxiety disorder, unspecified; K21.9 Gastro-esophageal reflux disease without esophagitis; I10 Essential (primary) hypertension; I48.91 Unspecified atrial fibrillation; Z86.718 Personal history of other venous thrombosis and embolism; E11.9 Type 2 diabetes mellitus without complications; G47.33 Obstructive sleep apnea (adult) (pediatric); Z87.891 Personal history of nicotine dependence; Z79.01 Long term (current) use of anticoagulants; Z79.899 Other long term (current) drug therapy
CPT/HCPCS: 82947; A9270; J0690; J1100; J2003; J2250; J2405; J2704; J2765; J2795; J3010

== ENCOUNTER → 2024-12-30 | Outpatient (CLI) | payer MEDICARE ==
[~2024-12-30] MED LIST changes: +BUME2 PO; +TAMS.4ER PO
[2024-12-30 15:47] LABS: C DIFFICILE DNA NEGATIVE (Negative)
== END | disposition home or self-care (01) ==
LOC: LAB SHORT 10:55 → LAB 10:55
PROVIDERS: Internal Medicine Nephrology
DX: N18.30 Chronic kidney disease, stage 3 unspecified (principal); D63.1 Anemia in chronic kidney disease; E55.9 Vitamin D deficiency, unspecified; E29.1 Testicular hypofunction; R76.9 Abnormal immunological finding in serum, unspecified; R94.5 Abnormal results of liver function studies; R94.6 Abnormal results of thyroid function studies; D51.8 Other vitamin B12 deficiency anemias; D52.8 Other folate deficiency anemias; D50.9 Iron deficiency anemia, unspecified; N25.81 Secondary hyperparathyroidism of renal origin
CPT/HCPCS: 87493

== ENCOUNTER 2025-06-03 11:54 | Day surgery (SDC) | payer MEDICARE ==
[~2025-06-03] VITALS: Ht 190.5 cm; Wt 109.0 kg
[2025-06-03] MEDS ORDERED: CeFAZolin Sodium 2,000 MG VIAL ONE (12:21)
[2025-06-03] MEDS ORDERED: XARELTO20 MG PO (12:39)
[2025-06-03] MEDS ORDERED: Lidocaine HCl 2% 10 ML SDA ONE (13:50)
[2025-06-03] MEDS ORDERED: Lidocaine HCl 2% 10 ML SDA INJ ONE (14:12)
--- NOTE | 2025-06-03 15:02 | NUR ---
06/03/25 Taylor2 Letty Floyd 1500 - ASSUMED CARE OF PT
[2025-06-03 16:06] VITALS: BP 138/96
== END 2025-06-03 15:55 | disposition home or self-care (01) ==
LOC: ORSCSDS 11:54
PROVIDERS: Podiatrist Foot & Ankle Surgery
PROC: 0Y6V0Z1 Detachment at Right 4th Toe, High, Open Approach (ICD-10-PCS; principal; 2025-06-03 13:45)
DX: L89.893 Pressure ulcer of other site, stage 3 (principal); M20.41 Other hammer toe(s) (acquired), right foot; L03.031 Cellulitis of right toe; E11.42 Type 2 diabetes mellitus with diabetic polyneuropathy; F41.9 Anxiety disorder, unspecified; Z86.718 Personal history of other venous thrombosis and embolism; J44.9 Chronic obstructive pulmonary disease, unspecified; G47.33 Obstructive sleep apnea (adult) (pediatric); I48.0 Paroxysmal atrial fibrillation; I12.9 Hypertensive chronic kidney disease with stage 1 through stage 4 chronic kidney disease, or unspecified chronic kidney disease; E11.22 Type 2 diabetes mellitus with diabetic chronic kidney disease; N18.9 Chronic kidney disease, unspecified; Z87.891 Personal history of nicotine dependence; E66.9 Obesity, unspecified; Z68.41 Body mass index [BMI] 40.0-44.9, adult; Z79.01 Long term (current) use of anticoagulants; Z79.84 Long term (current) use of oral hypoglycemic drugs; Z79.899 Other long term (current) drug therapy
CPT/HCPCS: 82947; 88305; 88311; J0690; J2003; J2704; J7120

== ENCOUNTER → 2025-09-16 | Outpatient (CLI) | payer MEDICARE | LOC: LAB 01:54 | DX: N18.30 Chronic kidney disease, stage 3 unspecified (principal); D63.1 Anemia in chronic kidney disease; N25.81 Secondary hyperparathyroidism of renal origin; E55.9 Vitamin D deficiency, unspecified; E27.0 Other adrenocortical overactivity; R76.9 Abnormal immunological finding in serum, unspecified; R94.5 Abnormal results of liver function studies; R94.6 Abnormal results of thyroid function studies; D51.8 Other vitamin B12 deficiency anemias; D52.8 Other folate deficiency anemias; D50.9 Iron deficiency anemia, unspecified ==

== ENCOUNTER → 2025-10-04 | Outpatient (CLI) | payer MEDICARE ==
[~2025-10-04] MED LIST changes: +XARELTO20 MG PO
[2025-10-04 13:51] LABS: C DIFFICILE DNA NEGATIVE (Negative)
== END | disposition home or self-care (01) ==
LOC: LAB 08:30 → LAB SHORT 08:30 → EDSTATUS 10-03 10:45 → LAB FUT 10-03 10:45
PROVIDERS: Internal Medicine Nephrology
DX: N18.30 Chronic kidney disease, stage 3 unspecified (principal); A04.71 Enterocolitis due to Clostridium difficile, recurrent
CPT/HCPCS: 87493